=== PATIENT | male | born 1960 | race Caucasian/White ===

== ENCOUNTER 2018-04-14 15:24 | Inpatient (IN) | payer MEDICARE, MEDICAID ==
[~2018-04-14] VITALS: Ht 177.8 cm; Wt 80.5 kg
[~2018-04-14 15:24] MED LIST: ACET325T21 PO; ASPI-621 PO; ATOR40TA78 PO; CARV3.122 PO; CLOP75TA PO; EMTR1TAB8 PO; LISI5TAB7 PO; NITR0.4T SL; [UNRECOGNIZED DRUG - REMARK]
[2018-04-14] MEDS ORDERED: SODIUM CHLORIDE FLUSH 10ML SYR IVF ONE (16:30)
[2018-04-14] MEDS ORDERED: SODIUM CHLORIDE 0.9% 1,000ML IVBOLUS ONE (16:30)
[2018-04-14] MEDS ORDERED: ASPIRIN 81 MG TABLET CHEW PO ONE (16:30)
[2018-04-14 16:33] LABS: ALANINE AMINOTRANSFERASE 84 U/L (12-78); ALBUMIN 2.9 g/dL (3.4-5.0); ANION GAP 8 mmol/L (5-15); CALCIUM 8.5 mg/dL (8.5-10.1); CHLORIDE 101 mmol/L (98-107); CREATININE 1.59 mg/dL (0.7-1.3); D-DIMER 2.28 ug/mlFEU (0.00-0.52); INTERNATIONAL NORMALIZED RATIO 1.61 (0.93-1.1); PROTHROMBIN TIME 16.4 Seconds (9.6-11.5)
[2018-04-14 16:37] LABS: ALKALINE PHOSPHATASE 121 U/L (45-117); BILIRUBIN,TOTAL 12.3 mg/dL (0.2-1.0); TOTAL PROTEIN 7.5 g/dL (6.4-8.2); TROPONIN I 0.117 ng/mL (0.000-0.045)
[2018-04-14 16:47] LABS: MEAN CORPUSCULAR HEMOGLOBIN 23.3 pg (27.5-34.5); MEAN CORPUSCULAR VOLUME 73.1 fL (81-97); RED BLOOD COUNT 5.67 x10^6/uL (4.38-5.82); RED CELL DISTRIBUTION WIDTH 22.8 % (9.4-14.8)
[2018-04-14 16:50] LABS: MD YES
[2018-04-14 16:56] LABS: LYMPH#(MANUAL) 1.28 x10^3/uL (1-3.4); LYMPHS% (MANUAL) 25 % (22-44); MONOS% (MANUAL) 4 % (2-9); NRBC % (MANUAL) 1 % (0-1); REACTIVE LYMPHS % (MANUAL) 2 % (0-0); SEG#(MANUAL) 3.52 x10^3/uL (1.8-6.8); SEGS% (MANUAL) 69 % (42-75)
[2018-04-14 16:58] LABS: ANISOCYTOSIS 2+; ECHINOCYTES 1+; HYPOCHROMIA 1+; MICROCYTOSIS 2+; OVALOCYTES 1+; POLYCHROMASIA 1+
[2018-04-14 16:59] LABS: TARGET CELLS 1+
[2018-04-14] MEDS ORDERED: SODIUM CHLORIDE 0.9%, 500ML IVBOLUS ONE (17:00)
[2018-04-14] MEDS ORDERED: OMNIPAQUE 350 MG/ML, 100ML BOTTLE ONE (17:00)
[2018-04-14 17:02] LABS: PLATELET COUNT 216 x10^3/uL (130-400)
[2018-04-14 17:03] LABS: <PLATELET ESTIMATE> ADEQUATE; LARGE PLATELETS 1+
[2018-04-14] MEDS ORDERED: lasix PO (17:28)
[2018-04-14] MEDS ORDERED: BISACODYL 10 MG SUPP PR PRN (19:30)
[2018-04-14] MEDS ORDERED: ONDANSETRON 2MG/ML, 2ML IVPush PRN (19:30)
[2018-04-14] MEDS ORDERED: POLYETHYLENE GLYCOL 17 GM PACKET PO PRN (19:30)
[2018-04-14] MEDS: FUROSEMIDE 40 MG/4 ML IV SCH (19:53)
[2018-04-14] MEDS: SODIUM CHLORIDE FLUSH 10ML SYR IVF SCH (20:00)
[2018-04-14 20:30] VITALS: BP 126/84
[2018-04-14] MEDS: HEPARIN 5,000 UNITS/ML, 1ML SQ SCH (22:00)
[2018-04-14 22:26] LABS: TROPONIN I 0.122 ng/mL (0.000-0.045)
[2018-04-14 23:30] LABS: MICROSCOPIC AUTO
[2018-04-14 23:33] LABS: CULTURE INDICATED? NO
[2018-04-14 23:40] LABS: CHLORIDE,URINE RANDOM 127 mmol/L; POTASSIUM,URINE RANDOM 24 mmol/L; SODIUM,URINE RANDOM 103 mmol/L
[2018-04-14 23:42] LABS: AMPHETAMINE SCREEN, URINE Negative (Negative); BARBITURATE SCREEN, URINE Negative (Negative); BENZODIAZEPINE SCREEN, URINE Negative (Negative); CANNABINOID SCREEN, URINE Negative (Negative); COCAINE SCREEN, URINE Negative (Negative); CREATININE,URINE RANDOM < 13.00 mg/dL; METHADONE SCREEN, URINE Negative (Negative); OPIATE SCREEN, URINE Negative (Negative)
[2018-04-15 02:16] VITALS: BP 104/72
[2018-04-15 04:30] LABS: INTERNATIONAL NORMALIZED RATIO 1.58 (0.93-1.1); PROTHROMBIN TIME 16.1 Seconds (9.6-11.5)
[2018-04-15 04:33] LABS: ALANINE AMINOTRANSFERASE 76 U/L (12-78); ALBUMIN 2.5 g/dL (3.4-5.0); ANION GAP 7 mmol/L (5-15); CALCIUM 7.8 mg/dL (8.5-10.1); CHLORIDE 101 mmol/L (98-107); CREATININE 1.46 mg/dL (0.7-1.3)
[2018-04-15 04:37] LABS: ALKALINE PHOSPHATASE 110 U/L (45-117); BILIRUBIN,TOTAL 10.3 mg/dL (0.2-1.0); TOTAL PROTEIN 6.3 g/dL (6.4-8.2); TROPONIN I 0.111 ng/mL (0.000-0.045)
[2018-04-15 04:42] LABS: MEAN CORPUSCULAR HEMOGLOBIN 22.9 pg (27.5-34.5); MEAN CORPUSCULAR HGB CONC 31.2 g/dL (33.2-36.2); MEAN CORPUSCULAR VOLUME 73.6 fL (81-97); PLATELET COUNT 177 x10^3/uL (130-400); RED BLOOD COUNT 5.01 x10^6/uL (4.38-5.82); RED CELL DISTRIBUTION WIDTH 22.3 % (9.4-14.8)
[2018-04-15 05:04] LABS: BASOPHILS # (AUTO) 0.01 x10^3/uL (0-0.1); BASOPHILS % (AUTO) 0 % (0-1); EOSINOPHILS # (AUTO) 0.02 x10^3/uL (0-0.4); EOSINOPHILS % (AUTO) 1 % (1-7); LYMPHOCYTES # (AUTO) 0.89 x10^3/uL (1-3.4); LYMPHOCYTES % (AUTO) 19 % (22-44); MD SCAN; MONOCYTES # (AUTO) 0.25 x10^3/uL (0.2-0.8); MONOCYTES % (AUTO) 6 % (2-9); NEUTROPHILS # (AUTO) 3.39 x10^3/uL (1.8-6.8); NEUTROPHILS % (AUTO) 74 % (42-75)
[2018-04-15] MEDS: HEPARIN 5,000 UNITS/ML, 1ML SQ SCH ×3 (05:31→21:42)
[2018-04-15 06:39] VITALS: BP 104/75
[2018-04-15] MEDS: FUROSEMIDE 40 MG/4 ML IV SCH ×2 (08:32→16:47)
[2018-04-15] MEDS: SENNA/DOCUSATE TABLET PO SCH (08:32)
[2018-04-15] MEDS: SODIUM CHLORIDE FLUSH 10ML SYR IVF SCH ×2 (08:33→21:42)
[2018-04-15 12:32] VITALS: BP 109/80
[2018-04-15 16:34] LABS: TROPONIN I 0.103 ng/mL (0.000-0.045)
[2018-04-15 16:45] VITALS: BP 106/83
[2018-04-15 18:44] VITALS: BP 99/76
[2018-04-16 01:30] VITALS: BP 103/70
[2018-04-16 04:22] LABS: MEAN CORPUSCULAR HEMOGLOBIN 23.1 pg (27.5-34.5); MEAN CORPUSCULAR HGB CONC 31.5 g/dL (33.2-36.2); MEAN CORPUSCULAR VOLUME 73.2 fL (81-97); MEAN PLATELET VOLUME 10.1 fL (7.4-10.4); PLATELET COUNT 186 x10^3/uL (130-400); RED BLOOD COUNT 4.96 x10^6/uL (4.38-5.82); RED CELL DISTRIBUTION WIDTH 22.3 % (9.4-14.8)
[2018-04-16 04:38] LABS: MD YES
[2018-04-16 04:40] LABS: ALBUMIN 2.4 g/dL (3.4-5.0); ANION GAP 7 mmol/L (5-15); CHLORIDE 99 mmol/L (98-107)
[2018-04-16 04:41] LABS: ANISOCYTOSIS 2+; HYPOCHROMIA 1+; LYMPH#(MANUAL) 0.83 x10^3/uL (1-3.4); LYMPHS% (MANUAL) 12 % (22-44); MICROCYTOSIS 1+; MONOS#(MANUAL) 0.14 x10^3/uL (0.3-2.7); MONOS% (MANUAL) 2 % (2-9); OVALOCYTES 1+; POLYCHROMASIA 1+; SEG#(MANUAL) 5.93 x10^3/uL (1.8-6.8); SEGS% (MANUAL) 86 % (42-75); TARGET CELLS 1+
[2018-04-16 04:43] LABS: <PLATELET ESTIMATE> ADEQUATE; LARGE PLATELETS 1+
[2018-04-16 04:45] LABS: ALANINE AMINOTRANSFERASE 68 U/L (12-78); ALKALINE PHOSPHATASE 102 U/L (45-117); BILIRUBIN,TOTAL 8.5 mg/dL (0.2-1.0); CALCIUM 7.6 mg/dL (8.5-10.1); CREATININE 1.39 mg/dL (0.7-1.3); TOTAL PROTEIN 6.3 g/dL (6.4-8.2); TROPONIN I 0.129 ng/mL (0.000-0.045)
[2018-04-16] MEDS: HEPARIN 5,000 UNITS/ML, 1ML SQ SCH ×3 (05:47→22:59)
[2018-04-16 07:04] VITALS: BP 103/78
[2018-04-16] MEDS: SENNA/DOCUSATE TABLET PO SCH (09:00)
[2018-04-16] MEDS: FUROSEMIDE 40 MG/4 ML IV SCH ×2 (12:14→17:07)
[2018-04-16] MEDS: ISOSORBIDE MONONITRATE ER 30 MG TABLET PO SCH (12:14)
[2018-04-16] MEDS: METOPROLOL SUCCINATE 25 MG TAB.ER.24H PO SCH (12:15)
[2018-04-16] MEDS: SODIUM CHLORIDE FLUSH 10ML SYR IVF SCH ×2 (12:16→21:00)
[2018-04-16] MEDS ORDERED: POTASSIUM CHLORIDE 20 MEQ TAB.ER.PRT PO ONE (12:30)
[2018-04-16 15:59] VITALS: BP 97/58
[2018-04-16] MEDS: POTASSIUM CHLORIDE 20 MEQ TAB.ER.PRT PO SCH (17:08)
[2018-04-16 19:39] VITALS: BP 93/64
[2018-04-16] MEDS ORDERED: NITROGLYCERIN 0.4 MG BOTTLE (25 TABS) SL PRN (20:30)
[2018-04-16] MEDS ORDERED: MAALOX/HYOSCYAMINE/LIDOCAINE 45 ML BTL PO ONE (21:00)
[2018-04-16] MEDS ORDERED: ASPIRIN 325 MG TABLET PO SCH (21:00)
[2018-04-16] MEDS ORDERED: CLOPIDOGREL 75 MG TABLET PO SCH (21:00)
[2018-04-16] MEDS ORDERED: ASPIRIN 81 MG TABLET EC PO SCH (21:12)
[2018-04-16] MEDS: EMTRICITABINE/TENOFOVIR 200 MG/300 MG TABLET PO SCH (21:25)
[2018-04-17 01:29] VITALS: BP 99/71
[2018-04-17] MEDS ORDERED: METOPROLOL SUCCINATE 25 MG TAB.ER.24H PO SCH (06:00)
[2018-04-17] MEDS: METOPROLOL SUCCINATE 25 MG TAB.ER.24H PO SCH (06:00)
[2018-04-17 06:14] VITALS: BP 99/72
[2018-04-17] MEDS: HEPARIN 5,000 UNITS/ML, 1ML SQ SCH ×2 (06:18→16:41)
[2018-04-17 07:32] VITALS: BP 105/73
[2018-04-17 08:09] LABS: ANION GAP 8 mmol/L (5-15); CALCIUM 7.8 mg/dL (8.5-10.1); CHLORIDE 97 mmol/L (98-107); CREATININE 1.35 mg/dL (0.7-1.3)
[2018-04-17 08:23] LABS: MEAN CORPUSCULAR HEMOGLOBIN 22.4 pg (27.5-34.5); MEAN CORPUSCULAR HGB CONC 30.5 g/dL (33.2-36.2); MEAN CORPUSCULAR VOLUME 73.4 fL (81-97); PLATELET COUNT 223 x10^3/uL (130-400); RED BLOOD COUNT 5.53 x10^6/uL (4.38-5.82); RED CELL DISTRIBUTION WIDTH 22.9 % (9.4-14.8)
[2018-04-17 08:24] LABS: MD YES
[2018-04-17 08:26] LABS: BAND#(MANUAL) 0.11 x10^3/uL; BANDS%(MANUAL) 2 % (0-7); BASOS#(MANUAL) 0.05 x10^3/uL (0-0.1); BASOS% (MANUAL) 1 % (0-1); LYMPH#(MANUAL) 1.35 x10^3/uL (1-3.4); LYMPHS% (MANUAL) 25 % (22-44); MONOS#(MANUAL) 0.22 x10^3/uL (0.3-2.7); MONOS% (MANUAL) 4 % (2-9); NRBC % (MANUAL) 3 % (0-1); SEG#(MANUAL) 3.67 x10^3/uL (1.8-6.8); SEGS% (MANUAL) 68 % (42-75)
[2018-04-17 08:27] LABS: ANISOCYTOSIS 2+; HYPOCHROMIA 2+; MICROCYTOSIS 1+; POLYCHROMASIA 1+
[2018-04-17 08:28] LABS: <PLATELET ESTIMATE> ADEQUATE; <PLT MORPHOLOGY> NORMAL PLT MORPH; OVALOCYTES 1+
[2018-04-17] MEDS: ASPIRIN 81 MG TABLET EC PO SCH (08:43)
[2018-04-17] MEDS: CLOPIDOGREL 75 MG TABLET PO SCH (08:43)
[2018-04-17] MEDS: FUROSEMIDE 40 MG/4 ML IV SCH ×2 (08:43→16:40)
[2018-04-17] MEDS: POTASSIUM CHLORIDE 20 MEQ TAB.ER.PRT PO SCH ×2 (08:43→19:25)
[2018-04-17] MEDS: ISOSORBIDE MONONITRATE ER 30 MG TABLET PO SCH (08:44)
[2018-04-17] MEDS: SODIUM CHLORIDE FLUSH 10ML SYR IVF SCH ×2 (09:00→20:58)
[2018-04-17] MEDS: SENNA/DOCUSATE TABLET PO SCH (09:00)
[2018-04-17 13:22] VITALS: BP 93/65
[2018-04-17 19:28] VITALS: BP 100/67
[2018-04-17] MEDS: EMTRICITABINE/TENOFOVIR 200 MG/300 MG TABLET PO SCH (20:58)
[2018-04-17] MEDS: FLUTICASONE NASAL SPRAY 16GM NAS SCH (20:58)
[2018-04-17] MEDS ORDERED: EMTRICITABINE/TENOFOVIR 200 MG/300 MG TABLET PO SCH (21:00)
[2018-04-18] MEDS: HEPARIN 5,000 UNITS/ML, 1ML SQ SCH ×3 (00:43→16:35)
[2018-04-18 01:06] VITALS: BP 100/70
[2018-04-18 05:12] VITALS: BP 99/69
[2018-04-18] MEDS: METOPROLOL SUCCINATE 25 MG TAB.ER.24H PO SCH (05:17)
[2018-04-18 05:21] LABS: CALCIUM 7.9 mg/dL (8.5-10.1); CHLORIDE 97 mmol/L (98-107)
[2018-04-18 05:31] LABS: ALBUMIN 2.7 g/dL (3.4-5.0); ALKALINE PHOSPHATASE 101 U/L (45-117); ANION GAP 7 mmol/L (5-15); BILIRUBIN,TOTAL 3.8 mg/dL (0.2-1.0); CREATININE 1.33 mg/dL (0.7-1.3)
[2018-04-18 05:50] LABS: ALANINE AMINOTRANSFERASE 53 U/L (12-78)
[2018-04-18 06:13] LABS: TOTAL PROTEIN 7.5 g/dL (6.4-8.2)
[2018-04-18 06:38] LABS: MD YES; MEAN CORPUSCULAR HEMOGLOBIN 22.6 pg (27.5-34.5); MEAN CORPUSCULAR HGB CONC 30.6 g/dL (33.2-36.2); MEAN CORPUSCULAR VOLUME 73.7 fL (81-97); MEAN PLATELET VOLUME 10.5 fL (7.4-10.4); PLATELET COUNT 213 x10^3/uL (130-400)
[2018-04-18 06:40] LABS: <PLATELET ESTIMATE> ADEQUATE; ANISOCYTOSIS 2+; HYPOCHROMIA 1+; LYMPH#(MANUAL) 0.48 x10^3/uL (1-3.4); LYMPHS% (MANUAL) 8 % (22-44); MICROCYTOSIS 1+; OVALOCYTES 1+; POLYCHROMASIA 1+; SEG#(MANUAL) 5.52 x10^3/uL (1.8-6.8); SEGS% (MANUAL) 92 % (42-75)
[2018-04-18 06:41] LABS: <PLT MORPHOLOGY> NORMAL PLT MORPH
[2018-04-18 07:29] VITALS: BP_SYST 116; BP_SYST 144; BP_DIAS 82; BP_DIAS 86
[2018-04-18] MEDS: SODIUM CHLORIDE FLUSH 10ML SYR IVF SCH ×2 (07:46→20:57)
[2018-04-18] MEDS: ASPIRIN 81 MG TABLET EC PO SCH (07:47)
[2018-04-18] MEDS: ISOSORBIDE MONONITRATE ER 30 MG TABLET PO SCH (07:47)
[2018-04-18] MEDS: CLOPIDOGREL 75 MG TABLET PO SCH (07:47)
[2018-04-18] MEDS: SENNA/DOCUSATE TABLET PO SCH (07:47)
[2018-04-18] MEDS: FUROSEMIDE 40 MG/4 ML IV SCH (07:47)
[2018-04-18] MEDS: POTASSIUM CHLORIDE 20 MEQ TAB.ER.PRT PO SCH ×2 (07:47→16:35)
[2018-04-18] MEDS: FLUTICASONE NASAL SPRAY 16GM NAS SCH ×2 (07:48→20:57)
[2018-04-18] MEDS: RAMIPRIL 2.5 MG CAPSULE PO SCH (10:00)
[2018-04-18 10:52] VITALS: BP 96/67
[2018-04-18 14:21] VITALS: BP 100/59
[2018-04-18 19:00] VITALS: BP 106/74
[2018-04-18] MEDS: EMTRICITABINE/TENOFOVIR 200 MG/300 MG TABLET PO SCH (20:58)
[2018-04-19] MEDS: HEPARIN 5,000 UNITS/ML, 1ML SQ SCH ×2 (00:23→08:34)
[2018-04-19 00:25] VITALS: BP 102/70
[2018-04-19 05:34] VITALS: BP 92/67
[2018-04-19] MEDS: METOPROLOL SUCCINATE 25 MG TAB.ER.24H PO SCH (05:37)
[2018-04-19 05:50] LABS: ALBUMIN 2.5 g/dL (3.4-5.0); CALCIUM 7.7 mg/dL (8.5-10.1); CHLORIDE 99 mmol/L (98-107)
[2018-04-19 05:56] LABS: ALANINE AMINOTRANSFERASE 46 U/L (12-78); ALKALINE PHOSPHATASE 93 U/L (45-117); ANION GAP 7 mmol/L (5-15); BILIRUBIN,TOTAL 2.3 mg/dL (0.2-1.0); CREATININE 1.35 mg/dL (0.7-1.3)
[2018-04-19 06:17] LABS: MEAN CORPUSCULAR HEMOGLOBIN 22.7 pg (27.5-34.5); MEAN CORPUSCULAR HGB CONC 30.8 g/dL (33.2-36.2); MEAN CORPUSCULAR VOLUME 73.4 fL (81-97); MEAN PLATELET VOLUME 10.5 fL (7.4-10.4); PLATELET COUNT 221 x10^3/uL (130-400); RED BLOOD COUNT 5.31 x10^6/uL (4.38-5.82); RED CELL DISTRIBUTION WIDTH 21.9 % (9.4-14.8)
[2018-04-19 06:18] LABS: BASOPHILS # (AUTO) 0.04 x10^3/uL (0-0.1); BASOPHILS % (AUTO) 1 % (0-1); EOSINOPHILS # (AUTO) 0.13 x10^3/uL (0-0.4); EOSINOPHILS % (AUTO) 3 % (1-7); LYMPHOCYTES # (AUTO) 1.17 x10^3/uL (1-3.4); LYMPHOCYTES % (AUTO) 26 % (22-44); MD SCAN; MONOCYTES # (AUTO) 0.22 x10^3/uL (0.2-0.8); MONOCYTES % (AUTO) 5 % (2-9); NEUTROPHILS # (AUTO) 2.94 x10^3/uL (1.8-6.8); NEUTROPHILS % (AUTO) 65 % (42-75)
[2018-04-19 07:22] VITALS: BP 100/71
[2018-04-19] MEDS: ASPIRIN 81 MG TABLET EC PO SCH (08:34)
[2018-04-19] MEDS: SODIUM CHLORIDE FLUSH 10ML SYR IVF SCH (08:34)
[2018-04-19] MEDS: ISOSORBIDE MONONITRATE ER 30 MG TABLET PO SCH (08:35)
[2018-04-19] MEDS: CLOPIDOGREL 75 MG TABLET PO SCH (08:35)
[2018-04-19] MEDS: FLUTICASONE NASAL SPRAY 16GM NAS SCH (08:35)
[2018-04-19] MEDS: SENNA/DOCUSATE TABLET PO SCH (08:35)
[2018-04-19] MEDS: RAMIPRIL 2.5 MG CAPSULE PO SCH (08:35)
[2018-04-19] MEDS: POTASSIUM CHLORIDE 20 MEQ TAB.ER.PRT PO SCH (08:35)
[2018-04-19] MEDS ORDERED: FUROSEMIDE 40 MG TABLET PO SCH (09:00)
[2018-04-19 13:06] VITALS: BP 91/64
[2018-04-19] MEDS ORDERED: ISOS30TA8 PO (13:59)
[2018-04-19] MEDS ORDERED: ASPI-621 PO (13:59)
[2018-04-19] MEDS ORDERED: METO25TA91 PO (13:59)
[2018-04-19] MEDS ORDERED: RAMI2.5C PO (13:59)
[2018-04-19] MEDS ORDERED: CLOP75TA PO (13:59)
[2018-04-19] MEDS ORDERED: FURO40TA6 PO (13:59)
[2018-04-19] MEDS ORDERED: POTA20TA6 PO (13:59)
== END 2018-04-19 16:23 | disposition left against medical advice (07) | DRG 291 ==
LOC: ED 19:05 → EDIP 19:15 → 5SO 19:31
PROVIDERS: ADMIT Family Medicine; ATTEND Family Medicine
DX: I13.0 Hypertensive heart and chronic kidney disease with heart failure and stage 1 through stage 4 chronic kidney disease, or unspecified chronic kidney disease (principal); I50.23 Acute on chronic systolic (congestive) heart failure; E87.2 Acidosis; E87.1 Hypo-osmolality and hyponatremia; D68.9 Coagulation defect, unspecified; I47.2 Ventricular tachycardia; F15.10 Other stimulant abuse, uncomplicated; K75.9 Inflammatory liver disease, unspecified; D50.9 Iron deficiency anemia, unspecified; E78.5 Hyperlipidemia, unspecified; F17.200 Nicotine dependence, unspecified, uncomplicated; I07.1 Rheumatic tricuspid insufficiency; I25.10 Atherosclerotic heart disease of native coronary artery without angina pectoris; I25.5 Ischemic cardiomyopathy; I27.20 Pulmonary hypertension, unspecified; I37.1 Nonrheumatic pulmonary valve insufficiency; K76.1 Chronic passive congestion of liver; K80.50 Calculus of bile duct without cholangitis or cholecystitis without obstruction; N18.2 Chronic kidney disease, stage 2 (mild); N20.0 Calculus of kidney; Z79.02 Long term (current) use of antithrombotics/antiplatelets; Z79.82 Long term (current) use of aspirin; Z91.14 Patient's other noncompliance with medication regimen; Z95.5 Presence of coronary angioplasty implant and graft; I25.2 Old myocardial infarction; Z86.73 Personal history of transient ischemic attack (TIA), and cerebral infarction without residual deficits; Z88.8 Allergy status to other drugs, medicaments and biological substances; Z21 Asymptomatic human immunodeficiency virus [HIV] infection status
CPT/HCPCS: 36415; 36600; 70450; 71045; 71275; 74181; 76700; 80048; 80053; 80074; 80307; 81001; 82140; 82436; 82570; 82728; 82803; 83540; 83550; 83605; 83690; 83735; 83880; 84133; 84300; 84484; 85025; 85379; 85610; 85730; 86361; 87040; 87536; 93005; 99285; C8929; J1644; J1940; Q9967; J7030; J7040

== ENCOUNTER 2018-08-10 07:33 | Inpatient (IN) | payer MEDICARE, MEDICAID ==
[~2018-08-10] VITALS: Ht 180.3 cm; Wt 85.9 kg
[~2018-08-10 07:33] MED LIST changes: -ASPI-621 PO; +ASPI81TA45 PO; +FURO40TA6 PO; +ISOS30TA8 PO; +METO25TA91 PO; +POTA20TA6 PO; +RAMI2.5C2 PO; +lasix PO
[2018-08-10] MEDS ORDERED: LORazepam 1MG TABLET PO ONE (08:00)
[2018-08-10] MEDS ORDERED: LORazepam 1MG TABLET ONE (08:06)
[2018-08-10 08:12] LABS: MEAN CORPUSCULAR HEMOGLOBIN 23.3 pg (27.5-34.5); MEAN CORPUSCULAR HGB CONC 31.4 g/dL (33.2-36.2); MEAN CORPUSCULAR VOLUME 74.2 fL (81-97); MEAN PLATELET VOLUME 8.7 fL (7.4-10.4); PLATELET COUNT 338 x10^3/uL (130-400); RED BLOOD COUNT 5.87 x10^6/uL (4.38-5.82); RED CELL DISTRIBUTION WIDTH 24.6 % (9.4-14.8)
[2018-08-10 08:19] LABS: ALBUMIN 2.6 g/dL (3.4-5.0); ANION GAP 12 mmol/L (5-15); CALCIUM 8.3 mg/dL (8.5-10.1); CHLORIDE 101 mmol/L (98-107); CREATININE 1.16 mg/dL (0.7-1.3)
[2018-08-10 08:26] LABS: TROPONIN I 0.134 ng/mL (0.000-0.045)
[2018-08-10 09:10] LABS: BASOPHILS # (AUTO) 0.06 x10^3/uL (0-0.1); BASOPHILS % (AUTO) 1 % (0-1); EOSINOPHILS # (AUTO) 0.06 x10^3/uL (0-0.4); EOSINOPHILS % (AUTO) 1 % (1-7); LYMPHOCYTES # (AUTO) 1.94 x10^3/uL (1-3.4); LYMPHOCYTES % (AUTO) 26 % (22-44); MD MORPH REVIEW ONLY; MONOCYTES # (AUTO) 0.48 x10^3/uL (0.2-0.8); MONOCYTES % (AUTO) 6 % (2-9); NEUTROPHILS # (AUTO) 4.94 x10^3/uL (1.8-6.8); NEUTROPHILS % (AUTO) 66 % (42-75)
[2018-08-10] MEDS ORDERED: SODIUM CHLORIDE FLUSH 10ML SYR IVF PRN (09:30)
[2018-08-10 10:12] LABS: ANISOCYTOSIS 2+
[2018-08-10 10:13] LABS: HYPOCHROMIA 1+; MICROCYTOSIS 1+
[2018-08-10 10:14] LABS: <PLATELET ESTIMATE> ADEQUATE; <PLT MORPHOLOGY> NORMAL PLT MORPH
[2018-08-10] MEDS ORDERED: LABETALOL 5MG/ML, 20ML IVPush PRN (11:00)
[2018-08-10] MEDS ORDERED: POLYETHYLENE GLYCOL 17 GM PACKET PO PRN (11:00)
[2018-08-10] MEDS ORDERED: ONDANSETRON 2MG/ML, 2ML IVPush PRN (11:00)
[2018-08-10 11:02] VITALS: BP 123/74
[2018-08-10] MEDS ORDERED: POTASSIUM CHLORIDE 20 MEQ TAB.ER.PRT PO ONE ×2 (11:30→14:30)
[2018-08-10] MEDS ORDERED: RITO100T PO (11:31)
[2018-08-10] MEDS ORDERED: ATAZ300C PO (11:31)
[2018-08-10] MEDS ORDERED: EMTR1TAB8 PO (11:31)
[2018-08-10] MEDS: ATAZANAVIR 150 MG PO SCH (12:00)
[2018-08-10] MEDS: CLOPIDOGREL 75 MG TABLET PO SCH (12:40)
[2018-08-10] MEDS: EMTRICITABINE/TENOFOVIR 200 MG/300 MG TABLET PO SCH (12:40)
[2018-08-10] MEDS: ASPIRIN 81 MG TABLET EC PO SCH (12:40)
[2018-08-10] MEDS: RITONAVIR 100 MG TABLET PO SCH (12:40)
[2018-08-10] MEDS: METOPROLOL SUCCINATE 25 MG TAB.ER.24H PO SCH (12:41)
[2018-08-10] MEDS: ENOXAPARIN 40 MG/0.4 ML SQ SCH (12:41)
[2018-08-10 13:14] VITALS: BP 116/81
[2018-08-10 14:35] LABS: TROPONIN I 0.122 ng/mL (0.000-0.045)
[2018-08-10 14:50] VITALS: BP 118/84
[2018-08-10] MEDS ORDERED: LORazepam 0.5MG TABLET ONE (15:14)
[2018-08-10] MEDS: LORazepam 0.5MG TABLET PO PRN (15:17)
[2018-08-10] MEDS: FUROSEMIDE 20 MG/2 ML IV SCH (16:56)
[2018-08-10 20:24] VITALS: BP 113/86
[2018-08-10 20:32] LABS: TROPONIN I 0.109 ng/mL (0.000-0.045)
[2018-08-11 02:11] VITALS: BP 129/69
[2018-08-11 05:20] VITALS: BP 94/66
[2018-08-11 05:37] LABS: MEAN CORPUSCULAR HGB CONC 31.1 g/dL (33.2-36.2); MEAN CORPUSCULAR VOLUME 74.1 fL (81-97); MEAN PLATELET VOLUME 8.9 fL (7.4-10.4); PLATELET COUNT 302 x10^3/uL (130-400); RED BLOOD COUNT 5.67 x10^6/uL (4.38-5.82); RED CELL DISTRIBUTION WIDTH 24.3 % (9.4-14.8)
[2018-08-11 05:51] LABS: ALBUMIN 2.5 g/dL (3.4-5.0); ANION GAP 13 mmol/L (5-15); CALCIUM 8.7 mg/dL (8.5-10.1); CHLORIDE 103 mmol/L (98-107)
[2018-08-11 05:54] LABS: BASOPHILS # (AUTO) 0.03 x10^3/uL (0-0.1); BASOPHILS % (AUTO) 0 % (0-1); EOSINOPHILS # (AUTO) 0.02 x10^3/uL (0-0.4); EOSINOPHILS % (AUTO) 0 % (1-7); LYMPHOCYTES % (AUTO) 23 % (22-44); MD SCAN; MONOCYTES # (AUTO) 0.64 x10^3/uL (0.2-0.8); MONOCYTES % (AUTO) 10 % (2-9); NEUTROPHILS # (AUTO) 4.25 x10^3/uL (1.8-6.8); NEUTROPHILS % (AUTO) 66 % (42-75)
[2018-08-11 06:04] LABS: ALANINE AMINOTRANSFERASE 34 U/L (12-78); ALKALINE PHOSPHATASE 111 U/L (45-117); BILIRUBIN,TOTAL 3.5 mg/dL (0.2-1.0); CREATININE 1.39 mg/dL (0.7-1.3); TOTAL PROTEIN 8.2 g/dL (6.4-8.2)
[2018-08-11 06:51] VITALS: BP 93/65
[2018-08-11] MEDS: FUROSEMIDE 20 MG/2 ML IV SCH ×2 (07:30→16:43)
[2018-08-11] MEDS: RAMIPRIL 2.5 MG CAPSULE PO SCH (09:00)
[2018-08-11] MEDS: ATAZANAVIR 150 MG PO SCH (09:00)
[2018-08-11] MEDS: SENNA/DOCUSATE TABLET PO SCH (09:00)
[2018-08-11] MEDS ORDERED: ISOSORBIDE MONONITRATE ER 30 MG TABLET PO SCH (09:00)
[2018-08-11] MEDS: ASPIRIN 81 MG TABLET EC PO SCH (09:45)
[2018-08-11] MEDS: METOPROLOL SUCCINATE 25 MG TAB.ER.24H PO SCH (09:45)
[2018-08-11] MEDS: CLOPIDOGREL 75 MG TABLET PO SCH (09:45)
[2018-08-11] MEDS: EMTRICITABINE/TENOFOVIR 200 MG/300 MG TABLET PO SCH (09:46)
[2018-08-11] MEDS: RITONAVIR 100 MG TABLET PO SCH (09:46)
[2018-08-11] MEDS ORDERED: HEPARIN 25,000 UNITS/500ML PMX 500 ML IV PRN (10:00)
[2018-08-11 11:00] LABS: INTERNATIONAL NORMALIZED RATIO 1.78 (0.93-1.1); PROTHROMBIN TIME 18.5 Seconds (9.6-11.5)
[2018-08-11] MEDS: ENOXAPARIN 40 MG/0.4 ML SQ SCH (11:00)
[2018-08-11] MEDS ORDERED: HEPARIN 5,000 UNITS/ML, 1ML IV ONE (11:30)
[2018-08-11] MEDS: HEPARIN 25,000 UNITS/500ML PMX 500 ML IV PRN (12:21)
[2018-08-11 12:36] VITALS: BP 101/75
[2018-08-11] MEDS: LORazepam 0.5MG TABLET PO PRN (17:45)
[2018-08-11] MEDS ORDERED: WARFARIN 5 MG TABLET PO-COUM ONE (18:00)
[2018-08-11] MEDS: ONDANSETRON ODT 4 MG PO PRN (18:35)
[2018-08-11 20:09] VITALS: BP 105/75
[2018-08-11] MEDS: HEPARIN 5,000 UNITS/ML, 1ML IV PRN (20:14)
[2018-08-12 00:43] VITALS: BP 97/74
[2018-08-12] MEDS: HEPARIN 5,000 UNITS/ML, 1ML IV PRN ×3 (02:42→16:47)
[2018-08-12 05:12] LABS: INTERNATIONAL NORMALIZED RATIO 2.08 (0.93-1.1); PROTHROMBIN TIME 21.4 Seconds (9.6-11.5)
[2018-08-12 05:17] LABS: MEAN CORPUSCULAR HEMOGLOBIN 23.3 pg (27.5-34.5); MEAN CORPUSCULAR HGB CONC 31.6 g/dL (33.2-36.2); MEAN CORPUSCULAR VOLUME 73.8 fL (81-97); MEAN PLATELET VOLUME 8.8 fL (7.4-10.4); PLATELET COUNT 282 x10^3/uL (130-400); RED BLOOD COUNT 5.49 x10^6/uL (4.38-5.82); RED CELL DISTRIBUTION WIDTH 24.5 % (9.4-14.8)
[2018-08-12 05:21] LABS: ALBUMIN 2.3 g/dL (3.4-5.0); ANION GAP 15 mmol/L (5-15); CALCIUM 8.8 mg/dL (8.5-10.1); CHLORIDE 98 mmol/L (98-107)
[2018-08-12 05:25] LABS: ALANINE AMINOTRANSFERASE 51 U/L (12-78); ALKALINE PHOSPHATASE 117 U/L (45-117); BILIRUBIN,TOTAL 5.3 mg/dL (0.2-1.0); CREATININE 1.58 mg/dL (0.7-1.3); TOTAL PROTEIN 7.6 g/dL (6.4-8.2)
[2018-08-12 05:48] VITALS: BP 96/69
[2018-08-12 06:03] LABS: BASOPHILS # (AUTO) 0.01 x10^3/uL (0-0.1); BASOPHILS % (AUTO) 0 % (0-1); EOSINOPHILS % (AUTO) 0 % (1-7); LYMPHOCYTES # (AUTO) 1.76 x10^3/uL (1-3.4); LYMPHOCYTES % (AUTO) 28 % (22-44); MD SCAN; MONOCYTES # (AUTO) 0.76 x10^3/uL (0.2-0.8); MONOCYTES % (AUTO) 12 % (2-9); NEUTROPHILS # (AUTO) 3.77 x10^3/uL (1.8-6.8); NEUTROPHILS % (AUTO) 60 % (42-75)
[2018-08-12] MEDS: FUROSEMIDE 20 MG/2 ML IV SCH (07:30)
[2018-08-12] MEDS ORDERED: PHARMACY MAY ADJ FOR RENAL FX MC PRN (08:00)
[2018-08-12] MEDS: SENNA/DOCUSATE TABLET PO SCH (08:39)
[2018-08-12 09:00] VITALS: BP 93/60
[2018-08-12] MEDS: RAMIPRIL 2.5 MG CAPSULE PO SCH (09:08)
[2018-08-12] MEDS: METOPROLOL SUCCINATE 25 MG TAB.ER.24H PO SCH (09:08)
[2018-08-12] MEDS: ASPIRIN 81 MG TABLET EC PO SCH (09:08)
[2018-08-12] MEDS: CLOPIDOGREL 75 MG TABLET PO SCH (09:08)
[2018-08-12] MEDS: ATAZANAVIR 150 MG PO SCH (09:09)
[2018-08-12] MEDS: RITONAVIR 100 MG TABLET PO SCH (09:09)
[2018-08-12] MEDS: EMTRICITABINE/TENOFOVIR 200 MG/300 MG TABLET PO SCH (09:09)
[2018-08-12] MEDS: HEPARIN 25,000 UNITS/500ML PMX 500 ML IV PRN (09:27)
[2018-08-12 15:01] VITALS: BP 91/60
[2018-08-12] MEDS ORDERED: WARFARIN 2.5 MG TABLET PO-COUM ONE (18:00)
[2018-08-12 18:44] VITALS: BP 90/56
[2018-08-12 20:12] LABS: AMPHETAMINE SCREEN, URINE Negative (Negative); BARBITURATE SCREEN, URINE Negative (Negative); BENZODIAZEPINE SCREEN, URINE Negative (Negative); CANNABINOID SCREEN, URINE Positive (Negative); COCAINE SCREEN, URINE Negative (Negative); METHADONE SCREEN, URINE Negative (Negative); OPIATE SCREEN, URINE Negative (Negative)
[2018-08-13] MEDS ORDERED: CEFTRIAXONE PMX 1GM/50ML 50 ML IV ONE
[2018-08-13] MEDS: HEPARIN 5,000 UNITS/ML, 1ML IV PRN (00:01)
[2018-08-13 01:15] VITALS: BP 99/90
[2018-08-13] MEDS: HEPARIN 25,000 UNITS/500ML PMX 500 ML IV PRN (03:16)
[2018-08-13] MEDS: METOPROLOL SUCCINATE 25 MG TAB.ER.24H PO SCH (05:50)
[2018-08-13 06:26] LABS: ALBUMIN 2.1 g/dL (3.4-5.0); ANION GAP 10 mmol/L (5-15); CHLORIDE 96 mmol/L (98-107); CREATININE 1.54 mg/dL (0.7-1.3); MEAN CORPUSCULAR HEMOGLOBIN 22.9 pg (27.5-34.5); MEAN CORPUSCULAR HGB CONC 31.3 g/dL (33.2-36.2); MEAN CORPUSCULAR VOLUME 73.1 fL (81-97); MEAN PLATELET VOLUME 9.1 fL (7.4-10.4); PLATELET COUNT 264 x10^3/uL (130-400); RED BLOOD COUNT 5.29 x10^6/uL (4.38-5.82); RED CELL DISTRIBUTION WIDTH 24.1 % (9.4-14.8)
[2018-08-13 06:48] LABS: INTERNATIONAL NORMALIZED RATIO 2.28 (0.93-1.1); PROTHROMBIN TIME 23.4 Seconds (9.6-11.5)
[2018-08-13 07:19] LABS: BASOPHILS # (AUTO) 0.02 x10^3/uL (0-0.1); BASOPHILS % (AUTO) 0 % (0-1); EOSINOPHILS # (AUTO) 0.03 x10^3/uL (0-0.4); EOSINOPHILS % (AUTO) 1 % (1-7); LYMPHOCYTES # (AUTO) 1.44 x10^3/uL (1-3.4); LYMPHOCYTES % (AUTO) 25 % (22-44); MD SCAN; MONOCYTES # (AUTO) 0.48 x10^3/uL (0.2-0.8); MONOCYTES % (AUTO) 9 % (2-9); NEUTROPHILS # (AUTO) 3.69 x10^3/uL (1.8-6.8); NEUTROPHILS % (AUTO) 65 % (42-75)
[2018-08-13] MEDS: FUROSEMIDE 40 MG/4 ML IV SCH ×4 (07:30→20:14)
[2018-08-13] MEDS ORDERED: ALBUMIN HUMAN 25% 100 ML IV ONE (07:30)
[2018-08-13] MEDS ORDERED: LIDOCAINE-MPF 1%, 5ML ONE (07:56)
[2018-08-13 08:08] VITALS: BP 102/70
[2018-08-13] MEDS: RAMIPRIL 2.5 MG CAPSULE PO SCH (09:00)
[2018-08-13] MEDS: SENNA/DOCUSATE TABLET PO SCH (09:00)
[2018-08-13] MEDS ORDERED: FUROSEMIDE 40 MG/4 ML IV ONE (09:00)
[2018-08-13] MEDS: ASPIRIN 81 MG TABLET EC PO SCH (09:37)
[2018-08-13] MEDS: RITONAVIR 100 MG TABLET PO SCH (09:38)
[2018-08-13] MEDS: ATAZANAVIR 150 MG PO SCH (09:38)
[2018-08-13] MEDS: EMTRICITABINE/TENOFOVIR 200 MG/300 MG TABLET PO SCH (09:38)
[2018-08-13 12:55] VITALS: BP 116/90
[2018-08-13 14:46] LABS: ALBUMIN 2.5 g/dL (3.4-5.0); ANION GAP 14 mmol/L (5-15); CALCIUM 8.2 mg/dL (8.5-10.1); CHLORIDE 96 mmol/L (98-107)
[2018-08-13 14:50] LABS: ALANINE AMINOTRANSFERASE 60 U/L (12-78); ALKALINE PHOSPHATASE 115 U/L (45-117); BILIRUBIN,TOTAL 5.3 mg/dL (0.2-1.0); CREATININE 1.36 mg/dL (0.7-1.3); TOTAL PROTEIN 7.4 g/dL (6.4-8.2)
[2018-08-13] MEDS ORDERED: WARFARIN 2.5 MG TABLET PO-COUM ONE (18:00)
[2018-08-13] MEDS ORDERED: ACETAMINOPHEN 325 MG TABLET PO PRN (20:00)
[2018-08-13 20:53] VITALS: BP 111/73
[2018-08-14 01:18] VITALS: BP 100/69
[2018-08-14 05:48] LABS: INTERNATIONAL NORMALIZED RATIO 3.03 (0.93-1.1); PROTHROMBIN TIME 30.8 Seconds (9.6-11.5)
[2018-08-14] MEDS: METOPROLOL SUCCINATE 25 MG TAB.ER.24H PO SCH (06:21)
[2018-08-14 07:22] VITALS: BP 88/54
[2018-08-14] MEDS: ATAZANAVIR 150 MG PO SCH (09:00)
[2018-08-14] MEDS: RAMIPRIL 2.5 MG CAPSULE PO SCH (09:00)
[2018-08-14] MEDS: SENNA/DOCUSATE TABLET PO SCH (09:00)
[2018-08-14 09:29] LABS: ALANINE AMINOTRANSFERASE 63 U/L (12-78); ALBUMIN 2.4 g/dL (3.4-5.0); ANION GAP 10 mmol/L (5-15); CALCIUM 7.9 mg/dL (8.5-10.1); CHLORIDE 98 mmol/L (98-107); CREATININE 1.21 mg/dL (0.7-1.3)
[2018-08-14 09:32] LABS: ALKALINE PHOSPHATASE 116 U/L (45-117); BILIRUBIN,TOTAL 4.9 mg/dL (0.2-1.0); TOTAL PROTEIN 6.8 g/dL (6.4-8.2)
[2018-08-14 09:33] LABS: MEAN CORPUSCULAR HEMOGLOBIN 22.6 pg (27.5-34.5); MEAN PLATELET VOLUME 9.3 fL (7.4-10.4); PLATELET COUNT 273 x10^3/uL (130-400); RED BLOOD COUNT 5.06 x10^6/uL (4.38-5.82)
[2018-08-14 09:51] LABS: BASOPHILS # (AUTO) 0.01 x10^3/uL (0-0.1); BASOPHILS % (AUTO) 0 % (0-1); EOSINOPHILS % (AUTO) 0 % (1-7); LYMPHOCYTES # (AUTO) 0.72 x10^3/uL (1-3.4); LYMPHOCYTES % (AUTO) 23 % (22-44); MD MORPH REVIEW ONLY; MONOCYTES # (AUTO) 0.12 x10^3/uL (0.2-0.8); MONOCYTES % (AUTO) 4 % (2-9); NEUTROPHILS # (AUTO) 2.33 x10^3/uL (1.8-6.8); NEUTROPHILS % (AUTO) 73 % (42-75)
[2018-08-14 09:52] LABS: ANISOCYTOSIS 1+; HYPOCHROMIA 1+; MICROCYTOSIS 1+; POLYCHROMASIA 1+; TARGET CELLS 1+
[2018-08-14 09:53] LABS: <PLATELET ESTIMATE> ADEQUATE; <PLT MORPHOLOGY> NORMAL PLT MORPH
[2018-08-14] MEDS: EMTRICITABINE/TENOFOVIR 200 MG/300 MG TABLET PO SCH (10:05)
[2018-08-14] MEDS: RITONAVIR 100 MG TABLET PO SCH (10:05)
[2018-08-14] MEDS: ASPIRIN 81 MG TABLET EC PO SCH (10:06)
[2018-08-14] MEDS: FUROSEMIDE 40 MG/4 ML IV SCH ×2 (10:07→20:58)
[2018-08-14] MEDS ORDERED: CEFTRIAXONE PMX 1GM/50ML 50 ML IV SCH (11:30)
[2018-08-14] MEDS: DOXYCYCLINE 100MG TABLET PO SCH ×2 (12:04→20:58)
[2018-08-14 13:48] VITALS: BP 106/76
[2018-08-14] MEDS ORDERED: WARFARIN 2.5 MG TABLET PO-COUM ONE (18:00)
[2018-08-14 18:44] VITALS: BP 98/69
[2018-08-15 00:42] VITALS: BP 108/79
[2018-08-15 05:32] LABS: INTERNATIONAL NORMALIZED RATIO 4.8 (0.93-1.1); PROTHROMBIN TIME 47.9 Seconds (9.6-11.5)
[2018-08-15 05:36] LABS: MEAN CORPUSCULAR HEMOGLOBIN 23.3 pg (27.5-34.5); MEAN CORPUSCULAR HGB CONC 31.9 g/dL (33.2-36.2); MEAN CORPUSCULAR VOLUME 73.2 fL (81-97); MEAN PLATELET VOLUME 9.5 fL (7.4-10.4); PLATELET COUNT 310 x10^3/uL (130-400); RED BLOOD COUNT 5.55 x10^6/uL (4.38-5.82); RED CELL DISTRIBUTION WIDTH 24.9 % (9.4-14.8)
[2018-08-15 05:38] LABS: ALBUMIN 2.5 g/dL (3.4-5.0); ANION GAP 12 mmol/L (5-15); CALCIUM 8.7 mg/dL (8.5-10.1); CHLORIDE 93 mmol/L (98-107)
[2018-08-15 05:39] LABS: CREATININE 1.58 mg/dL (0.7-1.3)
[2018-08-15] MEDS: METOPROLOL SUCCINATE 25 MG TAB.ER.24H PO SCH (06:06)
[2018-08-15 06:14] LABS: MD YES
[2018-08-15 06:16] LABS: LYMPH#(MANUAL) 1.13 x10^3/uL (1-3.4); LYMPHS% (MANUAL) 25 % (22-44); MONOS#(MANUAL) 0.32 x10^3/uL (0.3-2.7); MONOS% (MANUAL) 7 % (2-9); NRBC % (MANUAL) 9 % (0-1); SEG#(MANUAL) 3.06 x10^3/uL (1.8-6.8); SEGS% (MANUAL) 68 % (42-75)
[2018-08-15 06:17] LABS: ANISOCYTOSIS 1+; HYPOCHROMIA 1+; MICROCYTOSIS 1+; POLYCHROMASIA 1+; TARGET CELLS 1+
[2018-08-15 06:18] LABS: <PLATELET ESTIMATE> ADEQUATE; LARGE PLATELETS 1+
[2018-08-15] MEDS: ONDANSETRON ODT 4 MG PO PRN (08:16)
[2018-08-15] MEDS: DOXYCYCLINE 100MG TABLET PO SCH (08:22)
[2018-08-15] MEDS: RITONAVIR 100 MG TABLET PO SCH (08:22)
[2018-08-15] MEDS: FUROSEMIDE 40 MG/4 ML IV SCH (08:22)
[2018-08-15] MEDS: ATAZANAVIR 150 MG PO SCH (08:23)
[2018-08-15] MEDS: EMTRICITABINE/TENOFOVIR 200 MG/300 MG TABLET PO SCH (08:23)
[2018-08-15] MEDS: ASPIRIN 81 MG TABLET EC PO SCH (08:24)
[2018-08-15] MEDS: SENNA/DOCUSATE TABLET PO SCH (08:25)
[2018-08-15 08:38] VITALS: BP 128/76
[2018-08-15] MEDS: RAMIPRIL 2.5 MG CAPSULE PO SCH (08:40)
[2018-08-15] MEDS ORDERED: CEFD300C37 PO (08:56)
[2018-08-15] MEDS ORDERED: DOXY100T PO (08:56)
[2018-08-15] MEDS ORDERED: FURO-93 PO (08:57)
[2018-08-15] MEDS ORDERED: ATAZ300C PO (08:59)
[2018-08-15] MEDS ORDERED: EMTR1TAB8 PO (08:59)
[2018-08-15] MEDS ORDERED: SPIR25TA5 PO ×2 (09:00→10:00)
[2018-08-15 09:58] VITALS: BP 99/71
[2018-08-15] MEDS ORDERED: POTA10CA PO (10:03)
[2018-08-15] MEDS ORDERED: [UNRECOGNIZED DRUG - REMARK] MC PRN (11:00)
== END 2018-08-15 11:27 | disposition home health service (06) | DRG 291 ==
LOC: ED 08:40 → EDIP 09:30 → 5SO 10:50
PROVIDERS: ADMIT Internal Medicine; ATTEND Internal Medicine
PROC: 0W9B3ZZ Drainage of Left Pleural Cavity, Percutaneous Approach (ICD-10-PCS; principal; 2018-08-13)
DX: I13.0 Hypertensive heart and chronic kidney disease with heart failure and stage 1 through stage 4 chronic kidney disease, or unspecified chronic kidney disease (principal); I50.43 Acute on chronic combined systolic (congestive) and diastolic (congestive) heart failure; E43 Unspecified severe protein-calorie malnutrition; J18.9 Pneumonia, unspecified organism; I47.2 Ventricular tachycardia; E87.1 Hypo-osmolality and hyponatremia; I82.91 Chronic embolism and thrombosis of unspecified vein; E87.2 Acidosis; E78.5 Hyperlipidemia, unspecified; I25.5 Ischemic cardiomyopathy; K76.1 Chronic passive congestion of liver; I34.0 Nonrheumatic mitral (valve) insufficiency; F15.10 Other stimulant abuse, uncomplicated; I27.20 Pulmonary hypertension, unspecified; Z66 Do not resuscitate; N18.9 Chronic kidney disease, unspecified; I49.3 Ventricular premature depolarization; K80.20 Calculus of gallbladder without cholecystitis without obstruction; I25.10 Atherosclerotic heart disease of native coronary artery without angina pectoris; Z21 Asymptomatic human immunodeficiency virus [HIV] infection status; I25.2 Old myocardial infarction; Z95.5 Presence of coronary angioplasty implant and graft; Z91.19 Patient's noncompliance with other medical treatment and regimen; Z91.14 Patient's other noncompliance with medication regimen; Z86.73 Personal history of transient ischemic attack (TIA), and cerebral infarction without residual deficits; Z87.891 Personal history of nicotine dependence; Z88.8 Allergy status to other drugs, medicaments and biological substances
CPT/HCPCS: 32555; 36415; 71045; 71046; 76700; 80048; 80053; 80307; 82040; 82607; 82728; 82945; 83540; 83550; 83605; 83615; 83735; 83880; 84100; 84145; 84157; 84439; 84443; 84484; 85025; 85520; 85610; 87015; 87040; 87070; 87102; 87116; 87205; 87206; 88112; 88305; 89051; 93005; 93308; 93321; 93325; 99285; G0378; J0696; J1644; J1650; J1940; P9047; Q0162; J7512

== ENCOUNTER 2018-09-16 14:33 | Inpatient (IN) | payer MEDICARE, MEDICAID ==
[~2018-09-16] VITALS: Ht 180.3 cm; Wt 80.7 kg
[2018-09-16] VITALS (8 sets, daily range): BP systolic 93–113; BP diastolic 57–74
[~2018-09-16 14:33] MED LIST changes: +ATAZ300C PO; +CEFD300C37 PO; +DOXY100T PO; +FURO-93 PO; +POTA10CA PO; +RITO100T PO; +SPIR25TA5 PO
[2018-09-16] MEDS ORDERED: SODIUM CHLORIDE FLUSH 10ML SYR IVF ONE (15:00)
--- NOTE | 2018-09-16 15:25 | NUR ---
SEE TRIAGE NOTE. PT PLACED ON HEART MONITOR, BP CUFF, PULSE OX. EKG OBTAINED AT BS. IV PLACED, LABS DRAWN WITH START. 2ND IV TO BE PLACED BY MEDIC.
[2018-09-16 15:43] LABS: MEAN CORPUSCULAR HEMOGLOBIN 23.5 pg (27.5-34.5); MEAN CORPUSCULAR HGB CONC 31.6 g/dL (33.2-36.2); MEAN CORPUSCULAR VOLUME 74.4 fL (81-97); MEAN PLATELET VOLUME 8.1 fL (7.4-10.4); PLATELET COUNT 332 x10^3/uL (130-400); RED BLOOD COUNT 4.45 x10^6/uL (4.38-5.82); RED CELL DISTRIBUTION WIDTH 24.2 % (9.4-14.8)
[2018-09-16 15:50] LABS: ALBUMIN 2.8 g/dL (3.4-5.0); ANION GAP 8 mmol/L (5-15); CALCIUM 8.7 mg/dL (8.5-10.1); CHLORIDE 96 mmol/L (98-107)
[2018-09-16 15:54] LABS: ALANINE AMINOTRANSFERASE 15 U/L (12-78); ALKALINE PHOSPHATASE 149 U/L (45-117); BILIRUBIN,TOTAL 4.7 mg/dL (0.2-1.0); CREATININE 0.93 mg/dL (0.7-1.3); TOTAL PROTEIN 7.8 g/dL (6.4-8.2)
--- NOTE | 2018-09-16 16:12 | NUR ---
URINE COLLECTED/SENT TO LAB.
[2018-09-16 16:13] LABS: MD YES
--- NOTE | 2018-09-16 16:14 | NUR ---
MED REC COMPLETED WITH PT UNABLE TO CONFIRM ANY OF HIS DAILY MEDS. PT STATES MEDS GIVEN TO HIM BY [facility] AND SOMETIMES DELIVERED TO HIM AT HIS HOME. NAD AT THIS TIME.
[2018-09-16 16:17] LABS: BASOS#(MANUAL) 0.07 x10^3/uL (0-0.1); BASOS% (MANUAL) 1 % (0-1); LYMPH#(MANUAL) 1.52 x10^3/uL (1-3.4); LYMPHS% (MANUAL) 22 % (22-44); MONOS#(MANUAL) 0.62 x10^3/uL (0.3-2.7); MONOS% (MANUAL) 9 % (2-9); SEG#(MANUAL) 4.69 x10^3/uL (1.8-6.8); SEGS% (MANUAL) 68 % (42-75)
[2018-09-16 16:18] LABS: HYPOCHROMIA 1+; MICROCYTOSIS 1+; OVALOCYTES 1+; POLYCHROMASIA 1+; TARGET CELLS 1+
--- NOTE | 2018-09-16 16:19 | NUR ---
URINE COLLECTED/SENT TO LAB.
[2018-09-16 16:20] LABS: <PLATELET ESTIMATE> ADEQUATE; <PLT MORPHOLOGY> NORMAL PLT MORPH
[2018-09-16 16:27] LABS: MICROSCOPIC INDICATED
[2018-09-16 16:30] LABS: CULTURE INDICATED? NO
--- NOTE | 2018-09-16 16:52 | NUR ---
CALL FROM LAB REGARDING ERRORS IN COAGS, SPECIMEN TO BE REDRAWN. PT GASKET FORMER LIGHT, STATING BLEEDING FROM IV SITE. SITE REDRESSED, PT UPDATED ON POC. PT ASKING FOR FOOD/DRINK. PT INFORMED AGAIN OF NPO STATUS.
--- NOTE | 2018-09-16 17:10 | NUR ---
lunch coverage: assumed care of pt on behalf of primary RN for lunch break only. linens changed per pt request. lab had been to bedside for re-draw. pt to RAD via cindy
--- NOTE | 2018-09-16 17:20 | NUR ---
lunch coverage: pt returned from RAD. resting in position of comfort with lights dimmed
[2018-09-16] MEDS ORDERED: OMNIPAQUE 350 MG/ML, 100ML BOTTLE ONE (17:27)
--- NOTE | 2018-09-16 17:49 | NUR ---
lunch coverage: no changes. report to Delores SHEN
[2018-09-16] MEDS ORDERED: PANTOPRAZOLE 80 MG in SODIUM CHLORIDE 0.9% 100 ML IV SCH ×2 (18:27→19:30)
[2018-09-16] MEDS ORDERED: PANTOPRAZOLE 80 MG in SODIUM CHLORIDE 0.9% 50 ML IVPB ONE (18:27)
--- NOTE | 2018-09-16 19:11 | NUR ---
[facility] INFUSION STARTED. [facility] IN TO SEE PT. PT UPDATED ON POC, NEED FOR FFP/ADMISSION. VSS/UPDATED IN COMPUTER. COAGS REDRAWN TO BE SENT OUT TO [place] FOR DIFFERENT PROCESS. CALL LIGHT WITHIN REACH.
[2018-09-16] MEDS ORDERED: morphine SULFATE 10 MG/ML, 1ML IVPush PRN (19:30)
[2018-09-16] MEDS ORDERED: ACETAMINOPHEN 325 MG TABLET PO PRN (19:30)
[2018-09-16] MEDS ORDERED: BISACODYL 10 MG SUPP PR PRN (19:30)
[2018-09-16] MEDS ORDERED: ONDANSETRON 2MG/ML, 2ML IVPush PRN (19:30)
[2018-09-16] MEDS ORDERED: PHYTONADIONE 10 MG/ML, 1ML IM ONE (19:30)
[2018-09-16] MEDS ORDERED: POLYETHYLENE GLYCOL 17 GM PACKET PO PRN (19:30)
[2018-09-16] MEDS ORDERED: SODIUM CHLORIDE FLUSH 10ML SYR IVF PRN (19:30)
--- NOTE | 2018-09-16 19:41 | NUR ---
PT TO CT
--- NOTE | 2018-09-16 20:05 | NUR ---
PT BACK FROM CT. CONSENT SIGNED, PURPLE SLIP SENT TO BLOOD BANK.
--- NOTE | 2018-09-16 20:34 | NUR ---
NO REACTION WITH FIRST FFP TRANSFUSION. PURPLE SLIP TO BLOOD BANK FOR 2ND FFP.
--- NOTE | 2018-09-16 21:00 | NUR ---
2ND UNIT FFP TRANSFUSED. PT SLEEPING, NAD. AWAITING REPORT AND TRANSFER TO FLOOR.
--- NOTE | 2018-09-16 21:07 | NUR ---
ATTEMPT TO CALL REPORT, RN UNAVAILABLE-INFORMED WILL CALL BACK IN A FEW MINUTES.
[2018-09-16] MEDS: SODIUM CHLORIDE 0.9% 1,000 ML IV SCH (22:52)
[2018-09-17] VITALS (16 sets, daily range): BP systolic 94–108; BP diastolic 57–70
[2018-09-17 03:42] LABS: INTERNATIONAL NORMALIZED RATIO 2.91 (0.93-1.1); PROTHROMBIN TIME 29.6 Seconds (9.6-11.5)
[2018-09-17 03:45] LABS: ALBUMIN 2.7 g/dL (3.4-5.0); ANION GAP 8 mmol/L (5-15); CALCIUM 8.3 mg/dL (8.5-10.1); CHLORIDE 97 mmol/L (98-107)
[2018-09-17 03:48] LABS: ALANINE AMINOTRANSFERASE 15 U/L (12-78); ALKALINE PHOSPHATASE 114 U/L (45-117); BILIRUBIN,TOTAL 4.5 mg/dL (0.2-1.0); CREATININE 0.77 mg/dL (0.7-1.3); MEAN CORPUSCULAR HEMOGLOBIN 24.1 pg (27.5-34.5); MEAN CORPUSCULAR HGB CONC 32.7 g/dL (33.2-36.2); MEAN CORPUSCULAR VOLUME 73.6 fL (81-97); MEAN PLATELET VOLUME 7.9 fL (7.4-10.4); PLATELET COUNT 218 x10^3/uL (130-400); RED CELL DISTRIBUTION WIDTH 24.2 % (9.4-14.8); TOTAL PROTEIN 6.8 g/dL (6.4-8.2)
[2018-09-17 03:52] LABS: MD YES
[2018-09-17 03:59] LABS: ANISOCYTOSIS 1+; BAND#(MANUAL) 0.04 x10^3/uL; BANDS%(MANUAL) 1 % (0-7); EOS#(MANUAL) 0.09 x10^3/uL (0.0-0.4); EOS% (MANUAL) 2 % (1-7); HYPOCHROMIA 1+; LYMPH#(MANUAL) 0.66 x10^3/uL (1-3.4); LYMPHS% (MANUAL) 15 % (22-44); MICROCYTOSIS 1+; MONOS#(MANUAL) 0.31 x10^3/uL (0.3-2.7); MONOS% (MANUAL) 7 % (2-9); OVALOCYTES 1+; POLYCHROMASIA 1+; SEGS% (MANUAL) 75 % (42-75)
[2018-09-17 04:00] LABS: TARGET CELLS 1+
[2018-09-17 04:01] LABS: <PLATELET ESTIMATE> ADEQUATE; <PLT MORPHOLOGY> NORMAL PLT MORPH
[2018-09-17] MEDS: PANTOPRAZOLE 80 MG in SODIUM CHLORIDE 0.9% 100 ML IV SCH ×2 (05:16→14:15)
[2018-09-17] MEDS: SENNA/DOCUSATE TABLET PO SCH (09:00)
[2018-09-17] MEDS: ATAZANAVIR 150 MG PO SCH (09:20)
[2018-09-17] MEDS: EMTRICITABINE/TENOFOVIR 200 MG/300 MG TABLET PO SCH (09:20)
[2018-09-17] MEDS: RITONAVIR 100 MG TABLET PO SCH (09:20)
[2018-09-17] MEDS ORDERED: PHYTONADIONE 5 MG TABLET PO ONE (10:30)
[2018-09-17] MEDS ORDERED: MAGNESIUM SULFATE PMX 2GM/50ML 50 ML IV ONE (10:30)
[2018-09-17] MEDS: SODIUM CHLORIDE 0.9% 1,000 ML IV SCH (10:54)
[2018-09-18] VITALS (7 sets, daily range): BP systolic 84–108; BP diastolic 49–69
[2018-09-18] MEDS: PANTOPRAZOLE 80 MG in SODIUM CHLORIDE 0.9% 100 ML IV SCH ×2 (00:32→11:00)
[2018-09-18] MEDS: SODIUM CHLORIDE 0.9% 1,000 ML IV SCH ×4 (03:41→19:32)
[2018-09-18 05:18] LABS: INTERNATIONAL NORMALIZED RATIO 1.6 (0.93-1.1); PROTHROMBIN TIME 16.7 Seconds (9.6-11.5)
[2018-09-18 05:23] LABS: ANION GAP 9 mmol/L (5-15); CALCIUM 8.4 mg/dL (8.5-10.1); CHLORIDE 102 mmol/L (98-107); CREATININE 0.75 mg/dL (0.7-1.3)
[2018-09-18 05:42] LABS: MEAN CORPUSCULAR HEMOGLOBIN 23.5 pg (27.5-34.5); MEAN CORPUSCULAR HGB CONC 31.9 g/dL (33.2-36.2); MEAN CORPUSCULAR VOLUME 73.8 fL (81-97); MEAN PLATELET VOLUME 7.8 fL (7.4-10.4); PLATELET COUNT 228 x10^3/uL (130-400); RED BLOOD COUNT 3.08 x10^6/uL (4.38-5.82); RED CELL DISTRIBUTION WIDTH 24.1 % (9.4-14.8)
[2018-09-18 06:57] LABS: MD YES
[2018-09-18 06:59] LABS: <PLATELET ESTIMATE> ADEQUATE; <PLT MORPHOLOGY> NORMAL PLT MORPH; ANISOCYTOSIS 1+; BASOS#(MANUAL) 0.06 x10^3/uL (0-0.1); BASOS% (MANUAL) 2 % (0-1); EOS#(MANUAL) 0.22 x10^3/uL (0.0-0.4); EOS% (MANUAL) 7 % (1-7); HYPOCHROMIA 1+; LYMPHS% (MANUAL) 28 % (22-44); MICROCYTOSIS 1+; MONOS#(MANUAL) 0.29 x10^3/uL (0.3-2.7); MONOS% (MANUAL) 9 % (2-9); OVALOCYTES 1+; POLYCHROMASIA 1+; SEG#(MANUAL) 1.73 x10^3/uL (1.8-6.8); SEGS% (MANUAL) 54 % (42-75); TARGET CELLS 1+
[2018-09-18] MEDS ORDERED: PROPOFOL 10 MG/ML, 20ML ONE (07:49)
[2018-09-18] MEDS ORDERED: OXYcodone 5 MG/5 ML ORAL.SOL UDC PO PRN (08:30)
[2018-09-18] MEDS ORDERED: hydrALAzine 20 MG/ML, 1ML IV PRN (08:30)
[2018-09-18] MEDS ORDERED: MEPERIDINE/PF 25MG/0.5ML IVPush PRN (08:30)
[2018-09-18] MEDS ORDERED: HYDROmorphone 2 MG/ML, 1ML IVPush PRN (08:30)
[2018-09-18] MEDS ORDERED: ONDANSETRON 2MG/ML, 2ML IV PRN (08:30)
[2018-09-18] MEDS ORDERED: PROMETHAZINE 12.5 MG SUPP PR PRN (08:30)
[2018-09-18] MEDS ORDERED: FENTANYL PF 100 MCG/2ML IV PRN (08:30)
[2018-09-18] MEDS ORDERED: LABETALOL 5MG/ML, 20ML IV PRN (08:30)
[2018-09-18] MEDS ORDERED: MIDAZOLAM 1 MG/ML, 2ML IV PRN (08:30)
[2018-09-18] MEDS ORDERED: DIAZEPAM 5 MG/ML, 2ML IVPush PRN (08:30)
[2018-09-18] MEDS ORDERED: HALOPERIDOL 5 MG/ML IV PRN (08:30)
[2018-09-18] MEDS ORDERED: ONDANSETRON ODT 8 MG PO PRN (08:30)
[2018-09-18] MEDS ORDERED: PROMETHAZINE 25 MG/ML, 1ML IV PRN (08:30)
[2018-09-18] MEDS ORDERED: ALBUTEROL SULFATE 2.5 MG/3 ML NPPB PRN (08:30)
[2018-09-18] MEDS ORDERED: MORPHINE SULFATE 4 MG/ML, 1ML IVPush PRN (08:30)
[2018-09-18] MEDS ORDERED: EPHEDRINE 50 MG/ML, 1ML IVPush PRN (08:30)
[2018-09-18] MEDS ORDERED: FENTANYL PF 100 MCG/2ML ONE (08:39)
[2018-09-18] MEDS: ATAZANAVIR 150 MG PO SCH (09:00)
[2018-09-18] MEDS: SENNA/DOCUSATE TABLET PO SCH (09:00)
[2018-09-18] MEDS: RITONAVIR 100 MG TABLET PO SCH (09:00)
[2018-09-18] MEDS: EMTRICITABINE/TENOFOVIR 200 MG/300 MG TABLET PO SCH (10:14)
[2018-09-18] MEDS ORDERED: SODIUM CHLORIDE 0.9% 1,000ML IVBOLUS ONE (10:30)
[2018-09-19 00:18] VITALS: BP_SYST 83; BP_SYST 93; BP_DIAS 44
[2018-09-19 00:38] VITALS: BP 101/67
[2018-09-19] MEDS: SODIUM CHLORIDE 0.9% 1,000 ML IV SCH ×4 (00:39→23:41)
[2018-09-19 06:30] LABS: MEAN CORPUSCULAR HEMOGLOBIN 24.5 pg (27.5-34.5); MEAN CORPUSCULAR HGB CONC 32.5 g/dL (33.2-36.2); MEAN CORPUSCULAR VOLUME 75.2 fL (81-97); MEAN PLATELET VOLUME 7.9 fL (7.4-10.4); PLATELET COUNT 230 x10^3/uL (130-400); RED BLOOD COUNT 3.43 x10^6/uL (4.38-5.82); RED CELL DISTRIBUTION WIDTH 24.1 % (9.4-14.8)
[2018-09-19 06:31] LABS: CALCIUM 8.4 mg/dL (8.5-10.1); CHLORIDE 106 mmol/L (98-107)
[2018-09-19 06:37] LABS: ALANINE AMINOTRANSFERASE 16 U/L (12-78); ALBUMIN 2.6 g/dL (3.4-5.0); ALKALINE PHOSPHATASE 105 U/L (45-117); ANION GAP 7 mmol/L (5-15); BILIRUBIN,TOTAL 3.1 mg/dL (0.2-1.0); CREATININE 0.79 mg/dL (0.7-1.3); TOTAL PROTEIN 6.3 g/dL (6.4-8.2)
[2018-09-19 07:02] LABS: MD YES
[2018-09-19 07:07] VITALS: BP 96/55
[2018-09-19 07:17] LABS: <PLATELET ESTIMATE> ADEQUATE; <PLT MORPHOLOGY> NORMAL PLT MORPH; ANISOCYTOSIS 1+; BASOS#(MANUAL) 0.04 x10^3/uL (0-0.1); BASOS% (MANUAL) 1 % (0-1); EOS#(MANUAL) 0.15 x10^3/uL (0.0-0.4); EOS% (MANUAL) 4 % (1-7); HYPOCHROMIA 1+; LYMPH#(MANUAL) 0.93 x10^3/uL (1-3.4); LYMPHS% (MANUAL) 25 % (22-44); MICROCYTOSIS 1+; MONOS#(MANUAL) 0.41 x10^3/uL (0.3-2.7); MONOS% (MANUAL) 11 % (2-9); OVALOCYTES 1+; POLYCHROMASIA 1+; SEG#(MANUAL) 2.18 x10^3/uL (1.8-6.8); SEGS% (MANUAL) 59 % (42-75); TARGET CELLS 1+
[2018-09-19] MEDS: EMTRICITABINE/TENOFOVIR 200 MG/300 MG TABLET PO SCH (08:19)
[2018-09-19] MEDS: RITONAVIR 100 MG TABLET PO SCH (08:19)
[2018-09-19] MEDS: ATAZANAVIR 150 MG PO SCH (08:19)
[2018-09-19] MEDS: SENNA/DOCUSATE TABLET PO SCH (08:20)
[2018-09-19] MEDS ORDERED: LIDOCAINE 1%, 10ML IM ONE (10:30)
[2018-09-19 12:41] VITALS: BP 110/70
[2018-09-19 19:37] VITALS: BP 122/81
[2018-09-20 01:19] VITALS: BP 104/64
[2018-09-20 03:23] VITALS: BP 104/66
[2018-09-20 06:03] LABS: INTERNATIONAL NORMALIZED RATIO 1.21 (0.93-1.1); PROTHROMBIN TIME 12.7 Seconds (9.6-11.5)
[2018-09-20 06:07] LABS: CHLORIDE 108 mmol/L (98-107)
[2018-09-20 06:16] LABS: MEAN CORPUSCULAR HEMOGLOBIN 23.9 pg (27.5-34.5); MEAN CORPUSCULAR HGB CONC 31.6 g/dL (33.2-36.2); MEAN CORPUSCULAR VOLUME 75.7 fL (81-97); MEAN PLATELET VOLUME 7.5 fL (7.4-10.4); PLATELET COUNT 274 x10^3/uL (130-400); RED CELL DISTRIBUTION WIDTH 23.9 % (9.4-14.8)
[2018-09-20 06:21] LABS: ALANINE AMINOTRANSFERASE 13 U/L (12-78); ALBUMIN 2.5 g/dL (3.4-5.0); ALKALINE PHOSPHATASE 95 U/L (45-117); ANION GAP 9 mmol/L (5-15); BILIRUBIN,TOTAL 1.9 mg/dL (0.2-1.0); CALCIUM 8.3 mg/dL (8.5-10.1); CREATININE 0.78 mg/dL (0.7-1.3); TOTAL PROTEIN 6.1 g/dL (6.4-8.2)
[2018-09-20 06:49] VITALS: BP 103/62
[2018-09-20 07:14] LABS: ANISOCYTOSIS 1+; BASOPHILS # (AUTO) 0.01 x10^3/uL (0-0.1); BASOPHILS % (AUTO) 0 % (0-1); EOSINOPHILS # (AUTO) 0.14 x10^3/uL (0-0.4); EOSINOPHILS % (AUTO) 4 % (1-7); HYPOCHROMIA 1+; LYMPHOCYTES % (AUTO) 26 % (22-44); MD MORPH REVIEW ONLY; MICROCYTOSIS 1+; MONOCYTES # (AUTO) 0.34 x10^3/uL (0.2-0.8); MONOCYTES % (AUTO) 10 % (2-9); NEUTROPHILS # (AUTO) 2.07 x10^3/uL (1.8-6.8); NEUTROPHILS % (AUTO) 60 % (42-75); OVALOCYTES 1+; POLYCHROMASIA 1+
[2018-09-20 07:15] LABS: <PLATELET ESTIMATE> ADEQUATE; <PLT MORPHOLOGY> NORMAL PLT MORPH; TARGET CELLS 1+
== END 2018-09-20 08:02 | disposition left against medical advice (07) | DRG 377 ==
LOC: ED 18:36 → EDIP 20:08 → 4EST 21:27
PROVIDERS: ADMIT Hospitalist; ATTEND Hospitalist
PROC: 30233N1 Transfusion of Nonautologous Red Blood Cells into Peripheral Vein, Percutaneous Approach (ICD-10-PCS; 2018-09-17)
PROC: 30233K1 Transfusion of Nonautologous Frozen Plasma into Peripheral Vein, Percutaneous Approach (ICD-10-PCS; 2018-09-18)
PROC: 0DJ08ZZ Inspection of Upper Intestinal Tract, Via Natural or Artificial Opening Endoscopic (ICD-10-PCS; principal; 2018-09-18 08:00)
PROC: 0W9G3ZZ Drainage of Peritoneal Cavity, Percutaneous Approach (ICD-10-PCS; 2018-09-19)
DX: K92.1 Melena (principal); K66.1 Hemoperitoneum; E87.1 Hypo-osmolality and hyponatremia; E44.1 Mild protein-calorie malnutrition; D62 Acute posthemorrhagic anemia; D68.9 Coagulation defect, unspecified; I47.2 Ventricular tachycardia; I50.22 Chronic systolic (congestive) heart failure; R17 Unspecified jaundice; R18.8 Other ascites; Z88.8 Allergy status to other drugs, medicaments and biological substances; E78.5 Hyperlipidemia, unspecified; E83.42 Hypomagnesemia; F12.10 Cannabis abuse, uncomplicated; F15.10 Other stimulant abuse, uncomplicated; I11.0 Hypertensive heart disease with heart failure; I25.10 Atherosclerotic heart disease of native coronary artery without angina pectoris; I25.2 Old myocardial infarction; I25.5 Ischemic cardiomyopathy; I27.20 Pulmonary hypertension, unspecified; I34.0 Nonrheumatic mitral (valve) insufficiency; I51.3 Intracardiac thrombosis, not elsewhere classified; K59.00 Constipation, unspecified; T45.515A Adverse effect of anticoagulants, initial encounter; Y92.89 Other specified places as the place of occurrence of the external cause; Z79.01 Long term (current) use of anticoagulants; Z86.73 Personal history of transient ischemic attack (TIA), and cerebral infarction without residual deficits; Z86.79 Personal history of other diseases of the circulatory system; Z87.891 Personal history of nicotine dependence; Z95.5 Presence of coronary angioplasty implant and graft; Z53.21 Procedure and treatment not carried out due to patient leaving prior to being seen by health care provider; Z68.24 Body mass index [BMI] 24.0-24.9, adult
CPT/HCPCS: 36415; 49083; 71250; 74177; 80048; 80053; 81001; 82728; 83540; 83550; 83690; 83735; 84157; 85014; 85018; 85025; 85610; 85730; 86850; 86900; 86923; 87070; 87205; 88112; 88305; 89051; 93005; 96372; 96374; G0378; J2704; J3010; J3430; J3490; Q9967; C9113; J3475; J7030; P9016; P9017

== ENCOUNTER 2018-12-29 14:28 | Inpatient (IN) | payer MEDICARE, MEDICAID ==
[~2018-12-29] VITALS: Ht 180.3 cm; Wt 92.2 kg
[~2018-12-29 14:28] MED LIST changes: +ETOMIDATE 20 MG/10 ML ONE; +ROCURONIUM 10MG/ML,5ML ONE
[2018-12-29] MEDS ORDERED: SPIR25TA5 PO (14:48)
[2018-12-29] MEDS ORDERED: CEFTRIAXONE PMX 1GM/50ML 50 ML ONE (14:58)
[2018-12-29] MEDS ORDERED: SODIUM CHLORIDE FLUSH 10ML SYR IVF ONE (15:00)
[2018-12-29] MEDS ORDERED: CEFTRIAXONE PMX 1GM/50ML 50 ML IVPB ONE (15:00)
[2018-12-29] MEDS ORDERED: AZITHROMYCIN 500 MG in SODIUM CHLORIDE 0.9% 250 ML IVPB ONE (15:00)
--- NOTE | 2018-12-29 15:06 | NUR ---
pt laying on cindy awake & mostly calm- oacc agitation but easily redirected, responds approp to staff, NAD, comfort measures provided, call light within reach. Addendum: 12/29/18 at 1515 by RAZA pt laying on cindy awake & mostly calm- occas agitation but easily redirected, responds approp to staff, NAD, comfort measures provided, call light within reach.
[2018-12-29 15:27] LABS: ALANINE AMINOTRANSFERASE 11 U/L (12-78); CREATININE 1.53 mg/dL (0.7-1.3)
[2018-12-29 15:32] LABS: ALKALINE PHOSPHATASE 126 U/L (45-117); TOTAL PROTEIN 8.2 g/dL (6.4-8.2)
[2018-12-29 15:56] LABS: ANION GAP 14 mmol/L (5-15); CALCIUM 8.3 mg/dL (8.5-10.1); CHLORIDE 96 mmol/L (98-107)
[2018-12-29 16:04] LABS: MD YES; MEAN CORPUSCULAR HEMOGLOBIN 20.8 pg (27.5-34.5); MEAN CORPUSCULAR VOLUME 69.5 fL (81-97); MEAN PLATELET VOLUME 9.8 fL (7.4-10.4); PLATELET COUNT 298 x10^3/uL (130-400); RED BLOOD COUNT 6.41 x10^6/uL (4.38-5.82); RED CELL DISTRIBUTION WIDTH 21.8 % (9.4-14.8)
--- NOTE | 2018-12-29 16:05 | NUR ---
pt continues laying on gurney awake & mostly calm, responds approp to staff, NAD, comfort measures provided, call light within reach.
[2018-12-29 16:07] LABS: BANDS%(MANUAL) 1 % (0-7); LYMPHS% (MANUAL) 22 % (22-44); MONOS% (MANUAL) 4 % (2-9); SEGS% (MANUAL) 73 % (42-75); TROPONIN I 0.167 ng/mL (0.000-0.045)
[2018-12-29 16:08] LABS: ANISOCYTOSIS 1+; HYPOCHROMIA 1+; MICROCYTOSIS 1+; OVALOCYTES 1+; POLYCHROMASIA 1+
[2018-12-29 16:09] LABS: <PLATELET ESTIMATE> ADEQUATE; LARGE PLATELETS 1+; TEAR DROPS 1+
[2018-12-29 16:10] LABS: MEAN CORPUSCULAR HGB CONC 29.9 g/dL (33.2-36.2)
[2018-12-29 16:14] LABS: BAND#(MANUAL) 0.04 x10^3/uL
[2018-12-29 16:15] LABS: LYMPH#(MANUAL) 0.95 x10^3/uL (1-3.4); MONOS#(MANUAL) 0.17 x10^3/uL (0.3-2.7); SEG#(MANUAL) 3.14 x10^3/uL (1.8-6.8)
[2018-12-29] MEDS ORDERED: ASPIRIN 81 MG TABLET CHEW ONE (16:43)
[2018-12-29] MEDS ORDERED: ASPIRIN 81 MG TABLET CHEW PO ONE (17:00)
[2018-12-29] MEDS ORDERED: SODIUM CHLORIDE 0.9% 1,000ML IVBOLUS ONE (17:00)
--- NOTE | 2018-12-29 17:01 | NUR ---
pt laying on gurney awake & mostly calm, responds approp to staff, NAD, comfort measures provided, call light within reach.
--- NOTE | 2018-12-29 17:56 | NUR ---
pt sitting up on gurney awake & often anxious requiring frequent redirection- ERP aware, responds approp to staff, NAD, comfort measures provided, call light within reach.
[2018-12-29] MEDS ORDERED: LORazepam 2 MG/ML, 1ML IVPush ONE (18:00)
[2018-12-29] MEDS ORDERED: LORazepam 2 MG/ML, 1ML ONE (18:10)
[2018-12-29] MEDS ORDERED: ONDANSETRON 2MG/ML, 2ML IVPush PRN (19:00)
--- NOTE | 2018-12-29 19:05 | NUR ---
report given to Nas SHEN
[2018-12-29 20:38] LABS: INTERNATIONAL NORMALIZED RATIO 1.58 (0.93-1.1); PROTHROMBIN TIME 16.3 Seconds (9.6-11.5)
[2018-12-29 21:45] VITALS: BP 85/60
[2018-12-29] MEDS ORDERED: ALBUMIN HUMAN 5% 500 ML IV ONE (22:30)
[2018-12-29] MEDS: NOREPINEPHRINE 4 MG in SODIUM CHLORIDE 0.9% 246 ML IV PRN (22:52)
[2018-12-29] MEDS ORDERED: FENTANYL PF 100 MCG/2ML ONE (23:56)
[2018-12-30] MEDS ORDERED: VANCOMYCIN PER PHARMACY MC PRN (00:30)
[2018-12-30] MEDS ORDERED: PHARMACY MAY ADJ FOR RENAL FX MC PRN (00:30)
[2018-12-30] MEDS ORDERED: ZOSYN PER PHARMACY MC PRN (00:30)
[2018-12-30] MEDS ORDERED: PHARMACOKINETIC MONITORING MC PRN (00:30)
[2018-12-30] MEDS ORDERED: PHARMACOKINETIC CONSULTATION MC ONE (00:30)
[2018-12-30] MEDS ORDERED: VANCOMYCIN 1,500 MG in SODIUM CHLORIDE 0.9% 250 ML IV SCH (00:30)
[2018-12-30] MEDS ORDERED: SODIUM CHLORIDE 0.9% 1,000ML IVBOLUS ONE (00:30)
[2018-12-30] MEDS: PIPERACILLIN/TAZO/PMX 4.5GM 100 ML IV SCH ×4 (02:54→20:38)
[2018-12-30 04:00] VITALS: BP 92/60
[2018-12-30 07:31] LABS: TROPONIN I 0.195 ng/mL (0.000-0.045)
[2018-12-30 08:27] LABS: ALANINE AMINOTRANSFERASE 71 U/L (12-78); ALBUMIN 3.1 g/dL (3.4-5.0); ANION GAP 21 mmol/L (5-15); CALCIUM 8.5 mg/dL (8.5-10.1); CHLORIDE 96 mmol/L (98-107); CREATININE 1.93 mg/dL (0.7-1.3)
[2018-12-30 08:29] LABS: ALKALINE PHOSPHATASE 122 U/L (45-117); BILIRUBIN,TOTAL 9.3 mg/dL (0.2-1.0); TOTAL PROTEIN 7.2 g/dL (6.4-8.2)
[2018-12-30 08:40] LABS: MEAN CORPUSCULAR HEMOGLOBIN 21.1 pg (27.5-34.5); PLATELET COUNT 226 x10^3/uL (130-400); RED BLOOD COUNT 5.85 x10^6/uL (4.38-5.82); RED CELL DISTRIBUTION WIDTH 22.9 % (9.4-14.8)
[2018-12-30 09:00] LABS: MD YES; MEAN CORPUSCULAR HGB CONC 29.7 g/dL (33.2-36.2)
[2018-12-30 09:02] LABS: ANISOCYTOSIS 1+; BAND#(MANUAL) 0.22 x10^3/uL; BANDS%(MANUAL) 2 % (0-7); LYMPH#(MANUAL) 0.22 x10^3/uL (1-3.4); LYMPHS% (MANUAL) 2 % (22-44); MONOS% (MANUAL) 9 % (2-9); MYELOCYTES# (MANUAL) 0.11 x10^3/uL (0-0); MYELOCYTES% (MANUAL) 1 % (0-0); NRBC % (MANUAL) 1 % (0-1); SEG#(MANUAL) 9.55 x10^3/uL (1.8-6.8); SEGS% (MANUAL) 86 % (42-75)
[2018-12-30 09:03] LABS: MICROCYTOSIS 1+; POLYCHROMASIA 1+
[2018-12-30 09:04] LABS: HYPOCHROMIA 2+; OVALOCYTES 1+; TARGET CELLS 1+
[2018-12-30 09:05] LABS: <PLATELET ESTIMATE> ADEQUATE; <PLT MORPHOLOGY> NORMAL PLT MORPH; LARGE PLATELETS 1+
[2018-12-30] MEDS: DEXTROSE 5% 1,000 ML IV SCH ×2 (09:11→20:39)
[2018-12-30] MEDS ORDERED: DEXTROSE 50%, 50ML SYRINGE IVPush ONE (09:30)
[2018-12-30] MEDS: NOREPINEPHRINE 4 MG in SODIUM CHLORIDE 0.9% 246 ML IV PRN (11:11)
[2018-12-30] MEDS ORDERED: FENTANYL PF 100 MCG/2ML ONE (12:19)
[2018-12-30] MEDS: FENTANYL PF 100 MCG/2ML IVPush PRN (12:26)
[2018-12-30] MEDS ORDERED: MORPHINE SULFATE 4 MG/ML, 1ML IVPush PRN (12:30)
[2018-12-30 16:48] LABS: AMPHETAMINE SCREEN, URINE Positive (Negative); BARBITURATE SCREEN, URINE Negative (Negative); BENZODIAZEPINE SCREEN, URINE Negative (Negative); CANNABINOID SCREEN, URINE Negative (Negative); COCAINE SCREEN, URINE Negative (Negative); METHADONE SCREEN, URINE Negative (Negative); OPIATE SCREEN, URINE Negative (Negative)
[2018-12-30] MEDS: VANCOMYCIN 1,500 MG in SODIUM CHLORIDE 0.9% 250 ML IV SCH (21:18)
[2018-12-30 21:25] VITALS: BP 130/90
[2018-12-31 00:46] LABS: TROPONIN I 0.213 ng/mL (0.000-0.045)
[2018-12-31] MEDS: PIPERACILLIN/TAZO/PMX 4.5GM 100 ML IV SCH ×4 (02:48→20:56)
[2018-12-31 04:15] VITALS: BP 88/58
[2018-12-31 06:53] LABS: TROPONIN I 0.198 ng/mL (0.000-0.045)
[2018-12-31 08:52] LABS: ALBUMIN 2.2 g/dL (3.4-5.0); ANION GAP 10 mmol/L (5-15); CALCIUM 6.8 mg/dL (8.5-10.1); CHLORIDE 82 mmol/L (98-107)
[2018-12-31 08:55] LABS: ALANINE AMINOTRANSFERASE 200 U/L (12-78); ALKALINE PHOSPHATASE 86 U/L (45-117); BILIRUBIN,TOTAL 5.7 mg/dL (0.2-1.0); CREATININE 1.58 mg/dL (0.7-1.3); TOTAL PROTEIN 5.5 g/dL (6.4-8.2)
[2018-12-31 09:26] LABS: MEAN CORPUSCULAR HEMOGLOBIN 20.8 pg (27.5-34.5); MEAN CORPUSCULAR HGB CONC 30.1 g/dL (33.2-36.2); MEAN PLATELET VOLUME 9.9 fL (7.4-10.4); PLATELET COUNT 193 x10^3/uL (130-400); RED BLOOD COUNT 4.58 x10^6/uL (4.38-5.82); RED CELL DISTRIBUTION WIDTH 22.3 % (9.4-14.8)
[2018-12-31 09:27] LABS: MD YES
[2018-12-31 09:30] LABS: ANISOCYTOSIS 1+; LYMPH#(MANUAL) 0.92 x10^3/uL (1-3.4); LYMPHS% (MANUAL) 17 % (22-44); MICROCYTOSIS 1+; MONOS#(MANUAL) 0.32 x10^3/uL (0.3-2.7); MONOS% (MANUAL) 6 % (2-9); NRBC % (MANUAL) 1 % (0-1); SEG#(MANUAL) 4.16 x10^3/uL (1.8-6.8); SEGS% (MANUAL) 77 % (42-75)
[2018-12-31 09:31] LABS: <PLATELET ESTIMATE> ADEQUATE; HYPOCHROMIA 1+; POLYCHROMASIA 1+; TARGET CELLS 1+
[2018-12-31 09:32] LABS: LARGE PLATELETS 1+
[2018-12-31 09:33] LABS: OVALOCYTES 1+
[2018-12-31] MEDS: DEXTROSE 5% 1,000 ML IV SCH (09:33)
[2018-12-31 09:57] LABS: ALANINE AMINOTRANSFERASE 230 U/L (12-78); ALBUMIN 2.5 g/dL (3.4-5.0); ANION GAP 10 mmol/L (5-15); CALCIUM 7.6 mg/dL (8.5-10.1); CHLORIDE 93 mmol/L (98-107)
[2018-12-31 09:59] LABS: ALKALINE PHOSPHATASE 99 U/L (45-117); BILIRUBIN,TOTAL 6.5 mg/dL (0.2-1.0); TOTAL PROTEIN 6.3 g/dL (6.4-8.2)
[2018-12-31] MEDS: ENOXAPARIN 40 MG/0.4 ML SQ SCH (10:37)
[2018-12-31] MEDS ORDERED: FUROSEMIDE 20 MG/2 ML IV ONE (12:00)
[2018-12-31] MEDS: SODIUM CHLORIDE 0.9% 1,000 ML IV SCH (12:16)
[2018-12-31 15:39] LABS: ANION GAP 9 mmol/L (5-15); CALCIUM 7.5 mg/dL (8.5-10.1); CHLORIDE 96 mmol/L (98-107); CREATININE 1.56 mg/dL (0.7-1.3)
[2018-12-31 15:49] LABS: TROPONIN I 0.173 ng/mL (0.000-0.045)
[2018-12-31] MEDS: VANCOMYCIN 1,500 MG in SODIUM CHLORIDE 0.9% 250 ML IV SCH (16:41)
[2018-12-31] MEDS: POTASSIUM CHLORIDE 20 MEQ TAB.ER.PRT PO SCH (16:43)
[2018-12-31 21:35] LABS: ANION GAP 7 mmol/L (5-15); CALCIUM 7.4 mg/dL (8.5-10.1); CHLORIDE 97 mmol/L (98-107); CREATININE 1.42 mg/dL (0.7-1.3)
[2019-01-01] MEDS: SODIUM CHLORIDE 0.9% 1,000 ML IV SCH (03:46)
[2019-01-01] MEDS: PIPERACILLIN/TAZO/PMX 4.5GM 100 ML IV SCH ×4 (03:46→21:02)
[2019-01-01 04:15] LABS: ALBUMIN 2.4 g/dL (3.4-5.0); ANION GAP 7 mmol/L (5-15); CALCIUM 7.2 mg/dL (8.5-10.1); CHLORIDE 99 mmol/L (98-107)
[2019-01-01 04:19] LABS: ALANINE AMINOTRANSFERASE 209 U/L (12-78); ALKALINE PHOSPHATASE 94 U/L (45-117); CREATININE 1.29 mg/dL (0.7-1.3); TOTAL PROTEIN 5.8 g/dL (6.4-8.2)
[2019-01-01 04:25] LABS: MEAN CORPUSCULAR HEMOGLOBIN 21.3 pg (27.5-34.5); MEAN CORPUSCULAR HGB CONC 30.7 g/dL (33.2-36.2); MEAN CORPUSCULAR VOLUME 69.6 fL (81-97); MEAN PLATELET VOLUME 8.9 fL (7.4-10.4); PLATELET COUNT 159 x10^3/uL (130-400); RED BLOOD COUNT 4.92 x10^6/uL (4.38-5.82); RED CELL DISTRIBUTION WIDTH 22.4 % (9.4-14.8)
[2019-01-01 05:44] LABS: MD YES
[2019-01-01 05:46] LABS: EOS#(MANUAL) 0.07 x10^3/uL (0.0-0.4); EOS% (MANUAL) 1 % (1-7); LYMPH#(MANUAL) 1.02 x10^3/uL (1-3.4); LYMPHS% (MANUAL) 15 % (22-44); MONOS% (MANUAL) 3 % (2-9); NRBC % (MANUAL) 1 % (0-1); SEG#(MANUAL) 5.51 x10^3/uL (1.8-6.8); SEGS% (MANUAL) 81 % (42-75)
[2019-01-01 05:47] LABS: ANISOCYTOSIS 1+; HYPOCHROMIA 1+; MICROCYTOSIS 1+; POLYCHROMASIA 1+; TARGET CELLS 1+
[2019-01-01 05:48] LABS: <PLATELET ESTIMATE> ADEQUATE; LARGE PLATELETS 1+
[2019-01-01] MEDS: ENOXAPARIN 40 MG/0.4 ML SQ SCH (09:11)
[2019-01-01] MEDS: POTASSIUM CHLORIDE 20 MEQ TAB.ER.PRT PO SCH ×2 (09:11→13:42)
[2019-01-01] MEDS: OXYcodone IR 5MG TABLET PO PRN ×4 (09:21→21:55)
[2019-01-01] MEDS ORDERED: MAGNESIUM SULFATE PMX 2GM/50ML 50 ML IV ONE (09:30)
[2019-01-01] MEDS: VANCOMYCIN 1,500 MG in SODIUM CHLORIDE 0.9% 250 ML IV SCH (09:39)
[2019-01-01] MEDS: FENTANYL PF 100 MCG/2ML IVPush PRN (10:06)
[2019-01-01 10:19] LABS: ANION GAP 7 mmol/L (5-15); CALCIUM 7.3 mg/dL (8.5-10.1); CHLORIDE 97 mmol/L (98-107); CREATININE 1.17 mg/dL (0.7-1.3)
[2019-01-01 10:51] LABS: MEAN CORPUSCULAR HEMOGLOBIN 20.8 pg (27.5-34.5); MEAN CORPUSCULAR HGB CONC 30.2 g/dL (33.2-36.2); MEAN CORPUSCULAR VOLUME 69.1 fL (81-97); MEAN PLATELET VOLUME 8.9 fL (7.4-10.4); PLATELET COUNT 159 x10^3/uL (130-400); RED BLOOD COUNT 5.24 x10^6/uL (4.38-5.82); RED CELL DISTRIBUTION WIDTH 22.3 % (9.4-14.8)
[2019-01-01 10:52] LABS: BASOPHILS # (AUTO) 0.01 x10^3/uL (0-0.1); BASOPHILS % (AUTO) 0 % (0-1); EOSINOPHILS # (AUTO) 0.05 x10^3/uL (0-0.4); EOSINOPHILS % (AUTO) 1 % (1-7); LYMPHOCYTES # (AUTO) 0.83 x10^3/uL (1-3.4); LYMPHOCYTES % (AUTO) 14 % (22-44); MD SCAN; MONOCYTES # (AUTO) 0.33 x10^3/uL (0.2-0.8); MONOCYTES % (AUTO) 5 % (2-9); NEUTROPHILS # (AUTO) 4.87 x10^3/uL (1.8-6.8); NEUTROPHILS % (AUTO) 80 % (42-75)
[2019-01-01] MEDS: GABAPENTIN 100 MG CAPSULE PO SCH ×3 (16:11→21:07)
[2019-01-01] MEDS: POTASSIUM ACID PHOSPHATE 500 MG TABLET.SOL PO SCH ×2 (18:05→23:30)
[2019-01-01 19:05] VITALS: BP 103/62
[2019-01-01] MEDS ORDERED: MORPHINE SULFATE 4 MG/ML, 1ML IVPush PRN (20:30)
[2019-01-02 00:29] VITALS: BP 116/73
[2019-01-02] MEDS: OXYcodone IR 5MG TABLET PO PRN ×3 (02:31→22:07)
[2019-01-02 02:43] LABS: MEAN CORPUSCULAR HGB CONC 30.2 g/dL (33.2-36.2); MEAN CORPUSCULAR VOLUME 69.5 fL (81-97); MEAN PLATELET VOLUME 8.9 fL (7.4-10.4); PLATELET COUNT 161 x10^3/uL (130-400); RED BLOOD COUNT 5.32 x10^6/uL (4.38-5.82); RED CELL DISTRIBUTION WIDTH 22.8 % (9.4-14.8)
[2019-01-02] MEDS: PIPERACILLIN/TAZO/PMX 4.5GM 100 ML IV SCH ×4 (02:44→22:12)
[2019-01-02 02:53] LABS: % IRON SATURATION 6 % (20-55); ALANINE AMINOTRANSFERASE 193 U/L (12-78); ALBUMIN 2.6 g/dL (3.4-5.0); ANION GAP 6 mmol/L (5-15); CALCIUM 7.7 mg/dL (8.5-10.1); CHLORIDE 99 mmol/L (98-107); CREATININE 1.11 mg/dL (0.7-1.3); IRON LEVEL 25 mcg/dL (65-175); TOTAL IRON BINDING CAPACITY 449 mcg/dL (250-450)
[2019-01-02 02:56] LABS: ALKALINE PHOSPHATASE 103 U/L (45-117); BILIRUBIN,INDIRECT 2.3 mg/dL (0.0-2.0); BILIRUBIN,TOTAL 4.3 mg/dL (0.2-1.0); TOTAL PROTEIN 6.6 g/dL (6.4-8.2)
[2019-01-02 03:11] LABS: BASOPHILS # (AUTO) 0.05 x10^3/uL (0-0.1); BASOPHILS % (AUTO) 1 % (0-1); EOSINOPHILS % (AUTO) 2 % (1-7); LYMPHOCYTES # (AUTO) 1.11 x10^3/uL (1-3.4); LYMPHOCYTES % (AUTO) 18 % (22-44); MD SCAN; MONOCYTES # (AUTO) 0.48 x10^3/uL (0.2-0.8); MONOCYTES % (AUTO) 8 % (2-9); NEUTROPHILS # (AUTO) 4.53 x10^3/uL (1.8-6.8); NEUTROPHILS % (AUTO) 72 % (42-75)
[2019-01-02] MEDS: VANCOMYCIN 1,500 MG in SODIUM CHLORIDE 0.9% 250 ML IV SCH (04:03)
[2019-01-02] MEDS: POTASSIUM ACID PHOSPHATE 500 MG TABLET.SOL PO SCH ×2 (04:07→11:30)
[2019-01-02 07:20] VITALS: BP 118/78
[2019-01-02] MEDS: ENOXAPARIN 40 MG/0.4 ML SQ SCH (08:49)
[2019-01-02] MEDS: GABAPENTIN 100 MG CAPSULE PO SCH ×3 (08:49→22:06)
[2019-01-02 14:00] VITALS: BP 117/88
[2019-01-02] MEDS ORDERED: DILTIAZEM 5 MG/ML, 5ML IVPush PRN (16:00)
[2019-01-02 18:43] VITALS: BP 120/86
[2019-01-03 03:33] VITALS: BP 102/74
[2019-01-03] MEDS: PIPERACILLIN/TAZO/PMX 4.5GM 100 ML IV SCH ×4 (03:55→23:11)
[2019-01-03] MEDS: OXYcodone IR 5MG TABLET PO PRN ×3 (04:03→23:20)
[2019-01-03 06:45] VITALS: BP 138/91
[2019-01-03] MEDS ORDERED: SODIUM PHOSPHATE 4 MEQ/ML IV SCH (07:30)
[2019-01-03] MEDS ORDERED: SODIUM PHOSPHATE 30 MMOL in SODIUM CHLORIDE 0.9% 500 ML IV ONE (08:30)
[2019-01-03] MEDS: morphine SULFATE 10 MG/ML, 1ML IVPush PRN ×2 (09:14→20:28)
[2019-01-03] MEDS: ENOXAPARIN 40 MG/0.4 ML SQ SCH (09:15)
[2019-01-03] MEDS: GABAPENTIN 100 MG CAPSULE PO SCH ×3 (09:15→20:28)
[2019-01-03 12:10] LABS: HCT (SEDRATE) 36.4 % (39.2-51.8)
[2019-01-03 12:13] VITALS: BP 120/86
[2019-01-03 12:36] LABS: C-REACTIVE PROTEIN, QUANT 7.4 mg/dL (0.02-0.49)
[2019-01-03] MEDS ORDERED: OMNIPAQUE 350 MG/ML, 75ML BOTTLE ONE (15:03)
[2019-01-03 19:19] VITALS: BP 108/77
[2019-01-04 02:13] VITALS: BP 120/82
[2019-01-04] MEDS: PIPERACILLIN/TAZO/PMX 4.5GM 100 ML IV SCH ×4 (04:33→22:39)
[2019-01-04] MEDS: OXYcodone IR 5MG TABLET PO PRN ×4 (04:39→22:31)
[2019-01-04 04:55] LABS: MEAN CORPUSCULAR HEMOGLOBIN 21.2 pg (27.5-34.5); MEAN CORPUSCULAR HGB CONC 30.6 g/dL (33.2-36.2); MEAN CORPUSCULAR VOLUME 69.1 fL (81-97); MEAN PLATELET VOLUME 9.9 fL (7.4-10.4); PLATELET COUNT 187 x10^3/uL (130-400); RED BLOOD COUNT 4.95 x10^6/uL (4.38-5.82); RED CELL DISTRIBUTION WIDTH 22.8 % (9.4-14.8)
[2019-01-04 05:03] LABS: ALBUMIN 2.3 g/dL (3.4-5.0); ANION GAP 10 mmol/L (5-15); CALCIUM 7.8 mg/dL (8.5-10.1); CHLORIDE 93 mmol/L (98-107)
[2019-01-04 05:08] LABS: ALANINE AMINOTRANSFERASE 103 U/L (12-78); ALKALINE PHOSPHATASE 91 U/L (45-117); BILIRUBIN,TOTAL 5.4 mg/dL (0.2-1.0); CREATININE 1.31 mg/dL (0.7-1.3); TOTAL PROTEIN 6.5 g/dL (6.4-8.2)
[2019-01-04 05:54] LABS: BASOPHILS # (AUTO) 0.03 x10^3/uL (0-0.1); BASOPHILS % (AUTO) 1 % (0-1); EOSINOPHILS # (AUTO) 0.05 x10^3/uL (0-0.4); EOSINOPHILS % (AUTO) 1 % (1-7); LYMPHOCYTES % (AUTO) 16 % (22-44); MD SCAN; MONOCYTES # (AUTO) 0.79 x10^3/uL (0.2-0.8); MONOCYTES % (AUTO) 14 % (2-9); NEUTROPHILS # (AUTO) 3.89 x10^3/uL (1.8-6.8); NEUTROPHILS % (AUTO) 69 % (42-75)
[2019-01-04 07:22] VITALS: BP 123/89
[2019-01-04] MEDS ORDERED: SODIUM CHLORIDE 0.9% 500 ML IV SCH (09:00)
[2019-01-04] MEDS: GABAPENTIN 100 MG CAPSULE PO SCH ×3 (09:00→21:47)
[2019-01-04] MEDS: ENOXAPARIN 40 MG/0.4 ML SQ SCH (09:53)
[2019-01-04] MEDS: POLYETHYLENE GLYCOL 17 GM PACKET PO SCH (09:53)
[2019-01-04 13:40] VITALS: BP 103/80
[2019-01-04] MEDS: morphine SULFATE 10 MG/ML, 1ML IVPush PRN ×2 (14:32→23:45)
[2019-01-04] MEDS ORDERED: WARFARIN MODERAT DOSE PROTOCOL XX SCH (16:27)
[2019-01-04] MEDS ORDERED: HEPARIN 5,000 UNITS/ML, 1ML IV PRN (16:30)
[2019-01-04] MEDS ORDERED: HEPARIN 25,000 UNITS/500ML PMX 500 ML IV PRN (16:30)
[2019-01-04] MEDS ORDERED: HEPARIN 5,000 UNITS/ML, 1ML IV ONE ×2 (16:30→18:00)
[2019-01-04 17:08] LABS: INTERNATIONAL NORMALIZED RATIO 2.68 (0.93-1.1); PROTHROMBIN TIME 27.1 Seconds (9.6-11.5)
[2019-01-04] MEDS ORDERED: WARFARIN 5 MG TABLET PO-COUM ONE (19:30)
[2019-01-04 20:55] VITALS: BP 110/79
[2019-01-04] MEDS: HEPARIN 25,000 UNITS/500ML PMX 500 ML IV PRN (22:35)
[2019-01-05 01:00] VITALS: BP 105/74
[2019-01-05] MEDS ORDERED: ENALAPRILAT 1.25 MG/ML, 2ML IV PRN (01:30)
[2019-01-05 03:24] VITALS: BP 102/74
[2019-01-05] MEDS: OXYcodone IR 5MG TABLET PO PRN (03:30)
[2019-01-05] MEDS: morphine SULFATE 10 MG/ML, 1ML IVPush PRN ×3 (04:57→21:48)
[2019-01-05] MEDS: PIPERACILLIN/TAZO/PMX 4.5GM 100 ML IV SCH ×4 (05:00→23:46)
[2019-01-05 05:06] LABS: INTERNATIONAL NORMALIZED RATIO 2.92 (0.93-1.1); PROTHROMBIN TIME 29.4 Seconds (9.6-11.5)
[2019-01-05 05:15] LABS: HDL CHOLESTEROL (DIRECT) 8 mg/dL (40-60)
[2019-01-05 05:23] VITALS: BP 110/80
[2019-01-05 05:29] LABS: CHOL/HDL RATIO 6.3; CHOLESTEROL, TOTAL < 50 mg/dL (140-239); HDL CHOL % 0 % (26-37); LDL CHOLESTEROL,CALCULATED 26 mg/dL (54-169); LDL/HDL RATIO 3.3 (0.5-3.0); TRIGLYCERIDES 82 mg/dL (50-200); VLDL CHOLESTEROL 16 mg/dL (0-25)
[2019-01-05] MEDS: HEPARIN 5,000 UNITS/ML, 1ML IV PRN ×3 (06:04→20:58)
[2019-01-05 07:06] VITALS: BP 109/78
[2019-01-05 07:34] LABS: ALANINE AMINOTRANSFERASE 102 U/L (12-78); ALBUMIN 2.5 g/dL (3.4-5.0); ANION GAP 21 mmol/L (5-15); CALCIUM 8.5 mg/dL (8.5-10.1); CHLORIDE 91 mmol/L (98-107); CREATININE 1.72 mg/dL (0.7-1.3)
[2019-01-05 07:36] LABS: ALKALINE PHOSPHATASE 106 U/L (45-117); BILIRUBIN,TOTAL 6.9 mg/dL (0.2-1.0); TOTAL PROTEIN 7.2 g/dL (6.4-8.2)
[2019-01-05 07:37] LABS: MEAN CORPUSCULAR HEMOGLOBIN 20.8 pg (27.5-34.5); MEAN CORPUSCULAR HGB CONC 30.2 g/dL (33.2-36.2); MEAN CORPUSCULAR VOLUME 69.1 fL (81-97); MEAN PLATELET VOLUME 10.2 fL (7.4-10.4); PLATELET COUNT 187 x10^3/uL (130-400); RED BLOOD COUNT 5.79 x10^6/uL (4.38-5.82); RED CELL DISTRIBUTION WIDTH 22.6 % (9.4-14.8)
[2019-01-05 07:38] LABS: MD YES
[2019-01-05 07:44] LABS: NRBC % (MANUAL) 9 % (0-1)
[2019-01-05 07:45] LABS: LYMPH#(MANUAL) 0.38 x10^3/uL (1-3.4); LYMPHS% (MANUAL) 7 % (22-44)
[2019-01-05 07:46] LABS: <PLATELET ESTIMATE> ADEQUATE; ANISOCYTOSIS 2+; MICROCYTOSIS 2+; MONOS#(MANUAL) 0.54 x10^3/uL (0.3-2.7); MONOS% (MANUAL) 10 % (2-9); POLYCHROMASIA 1+; SEG#(MANUAL) 4.48 x10^3/uL (1.8-6.8); SEGS% (MANUAL) 83 % (42-75)
[2019-01-05 07:47] LABS: HYPOCHROMIA 2+; LARGE PLATELETS 1+
[2019-01-05] MEDS: FUROSEMIDE 20 MG/2 ML IV SCH ×3 (08:00→17:00)
[2019-01-05] MEDS ORDERED: METOPROLOL SUCCINATE 25 MG TAB.ER.24H PO SCH (08:00)
[2019-01-05] MEDS ORDERED: PHARMACY MAY ADJ FOR RENAL FX MC PRN (08:00)
[2019-01-05] MEDS: GABAPENTIN 100 MG CAPSULE PO SCH ×3 (08:53→21:03)
[2019-01-05] MEDS: POLYETHYLENE GLYCOL 17 GM PACKET PO SCH (08:53)
[2019-01-05] MEDS: ASPIRIN 81 MG TABLET EC PO SCH (09:00)
[2019-01-05 12:34] VITALS: BP 123/79
[2019-01-05] MEDS: ATORVASTATIN 80 MG TABLET PO SCH (20:58)
[2019-01-05] MEDS: HEPARIN 25,000 UNITS/500ML PMX 500 ML IV PRN (20:59)
[2019-01-05 21:00] VITALS: BP 116/88
[2019-01-06 01:35] VITALS: BP 109/72
[2019-01-06] MEDS: morphine SULFATE 10 MG/ML, 1ML IVPush PRN ×4 (03:13→22:08)
[2019-01-06 03:46] LABS: INTERNATIONAL NORMALIZED RATIO 2.58 (0.93-1.1); PROTHROMBIN TIME 26.1 Seconds (9.6-11.5)
[2019-01-06 03:49] LABS: MEAN CORPUSCULAR HEMOGLOBIN 20.9 pg (27.5-34.5); MEAN CORPUSCULAR HGB CONC 30.4 g/dL (33.2-36.2); MEAN CORPUSCULAR VOLUME 68.9 fL (81-97); PLATELET COUNT 202 x10^3/uL (130-400); RED BLOOD COUNT 5.82 x10^6/uL (4.38-5.82); RED CELL DISTRIBUTION WIDTH 23.2 % (9.4-14.8)
[2019-01-06] MEDS: HEPARIN 5,000 UNITS/ML, 1ML IV PRN ×3 (04:03→18:22)
[2019-01-06 04:14] LABS: ALANINE AMINOTRANSFERASE 91 U/L (12-78); ALBUMIN 2.5 g/dL (3.4-5.0); ANION GAP 12 mmol/L (5-15); CALCIUM 8.4 mg/dL (8.5-10.1); CHLORIDE 91 mmol/L (98-107); CREATININE 1.43 mg/dL (0.7-1.3)
[2019-01-06 04:16] LABS: ALKALINE PHOSPHATASE 118 U/L (45-117); BILIRUBIN,TOTAL 6.6 mg/dL (0.2-1.0); TOTAL PROTEIN 7.3 g/dL (6.4-8.2)
[2019-01-06 04:32] LABS: MD MORPH REVIEW ONLY
[2019-01-06 04:33] LABS: ANISOCYTOSIS 1+; BASOPHILS # (AUTO) 0.04 x10^3/uL (0-0.1); BASOPHILS % (AUTO) 1 % (0-1); EOSINOPHILS # (AUTO) 0.11 x10^3/uL (0-0.4); EOSINOPHILS % (AUTO) 1 % (1-7); LYMPHOCYTES # (AUTO) 1.53 x10^3/uL (1-3.4); LYMPHOCYTES % (AUTO) 21 % (22-44); MONOCYTES # (AUTO) 1.07 x10^3/uL (0.2-0.8); MONOCYTES % (AUTO) 14 % (2-9); NEUTROPHILS # (AUTO) 4.69 x10^3/uL (1.8-6.8); NEUTROPHILS % (AUTO) 63 % (42-75); OVALOCYTES 1+
[2019-01-06 04:34] LABS: POLYCHROMASIA 1+; TARGET CELLS 1+
[2019-01-06 04:35] LABS: <PLATELET ESTIMATE> ADEQUATE; <PLT MORPHOLOGY> NORMAL PLT MORPH
[2019-01-06 05:08] VITALS: BP 109/78
[2019-01-06] MEDS: PIPERACILLIN/TAZO/PMX 4.5GM 100 ML IV SCH ×4 (05:20→22:54)
[2019-01-06] MEDS: METOPROLOL SUCCINATE 25 MG TAB.ER.24H PO SCH (05:21)
[2019-01-06] MEDS: ASPIRIN 81 MG TABLET EC PO SCH (05:21)
[2019-01-06] MEDS: FUROSEMIDE 20 MG/2 ML IV SCH ×2 (07:30→16:16)
[2019-01-06 08:00] VITALS: BP 95/67
[2019-01-06] MEDS: POLYETHYLENE GLYCOL 17 GM PACKET PO SCH (08:48)
[2019-01-06] MEDS: GABAPENTIN 100 MG CAPSULE PO SCH ×3 (08:48→22:09)
[2019-01-06 12:29] VITALS: BP 100/68
[2019-01-06] MEDS: HEPARIN 25,000 UNITS/500ML PMX 500 ML IV PRN (16:16)
[2019-01-06] MEDS ORDERED: WARFARIN 1 MG TABLET PO-COUM SCH (18:00)
[2019-01-06 21:44] VITALS: BP 103/74
[2019-01-06] MEDS: ATORVASTATIN 80 MG TABLET PO SCH (22:09)
[2019-01-07 01:53] VITALS: BP 112/76
[2019-01-07] MEDS: PIPERACILLIN/TAZO/PMX 4.5GM 100 ML IV SCH ×4 (05:14→23:51)
[2019-01-07] MEDS: morphine SULFATE 10 MG/ML, 1ML IVPush PRN ×3 (05:14→14:42)
[2019-01-07] MEDS: METOPROLOL SUCCINATE 25 MG TAB.ER.24H PO SCH (05:14)
[2019-01-07] MEDS: ASPIRIN 81 MG TABLET EC PO SCH (05:14)
[2019-01-07 06:45] VITALS: BP 112/68
[2019-01-07] MEDS: HEPARIN 25,000 UNITS/500ML PMX 500 ML IV PRN ×2 (07:17→21:45)
[2019-01-07 07:35] LABS: ALANINE AMINOTRANSFERASE 81 U/L (12-78); ALBUMIN 2.5 g/dL (3.4-5.0); ANION GAP 9 mmol/L (5-15); CALCIUM 8.3 mg/dL (8.5-10.1); CHLORIDE 89 mmol/L (98-107)
[2019-01-07 07:38] LABS: ALKALINE PHOSPHATASE 126 U/L (45-117); BILIRUBIN,TOTAL 6.3 mg/dL (0.2-1.0); CREATININE 1.36 mg/dL (0.7-1.3); TOTAL PROTEIN 7.6 g/dL (6.4-8.2)
[2019-01-07 07:40] LABS: INTERNATIONAL NORMALIZED RATIO 2.58 (0.93-1.1); PROTHROMBIN TIME 26.1 Seconds (9.6-11.5)
[2019-01-07 07:42] LABS: BASOPHILS # (AUTO) 0.04 x10^3/uL (0-0.1); BASOPHILS % (AUTO) 1 % (0-1); EOSINOPHILS # (AUTO) 0.06 x10^3/uL (0-0.4); EOSINOPHILS % (AUTO) 1 % (1-7); LYMPHOCYTES # (AUTO) 0.75 x10^3/uL (1-3.4); LYMPHOCYTES % (AUTO) 12 % (22-44); MD MORPH REVIEW ONLY; MEAN CORPUSCULAR HEMOGLOBIN 20.8 pg (27.5-34.5); MEAN CORPUSCULAR HGB CONC 30.5 g/dL (33.2-36.2); MEAN CORPUSCULAR VOLUME 68.1 fL (81-97); MEAN PLATELET VOLUME 10.8 fL (7.4-10.4); MONOCYTES # (AUTO) 0.63 x10^3/uL (0.2-0.8); MONOCYTES % (AUTO) 10 % (2-9); NEUTROPHILS # (AUTO) 4.65 x10^3/uL (1.8-6.8); NEUTROPHILS % (AUTO) 76 % (42-75); PLATELET COUNT 197 x10^3/uL (130-400); RED CELL DISTRIBUTION WIDTH 24.2 % (9.4-14.8)
[2019-01-07 07:43] LABS: <PLATELET ESTIMATE> ADEQUATE; <PLT MORPHOLOGY> NORMAL PLT MORPH; ANISOCYTOSIS 1+; MICROCYTOSIS 1+; POLYCHROMASIA 1+; TARGET CELLS 1+
[2019-01-07 07:45] LABS: HYPOCHROMIA 1+
[2019-01-07] MEDS: NEUTRA PHOS K 250 MG TABLET PO SCH ×3 (08:47→21:53)
[2019-01-07] MEDS: FUROSEMIDE 20 MG/2 ML IV SCH ×2 (08:48→16:50)
[2019-01-07] MEDS: GABAPENTIN 100 MG CAPSULE PO SCH ×3 (08:48→21:53)
[2019-01-07] MEDS: POLYETHYLENE GLYCOL 17 GM PACKET PO SCH (08:49)
[2019-01-07 13:46] VITALS: BP 102/70
[2019-01-07] MEDS: SPIRONOLACTONE 25 MG TABLET PO SCH (16:49)
[2019-01-07] MEDS: SENNA/DOCUSATE TABLET PO PRN (16:49)
[2019-01-07] MEDS ORDERED: WARFARIN 1 MG TABLET PO-COUM SCH ×2 (18:00)
[2019-01-07 19:20] VITALS: BP 105/67
[2019-01-07] MEDS: OXYcodone IR 5MG TABLET PO PRN (21:53)
[2019-01-07] MEDS: ATORVASTATIN 80 MG TABLET PO SCH (21:54)
[2019-01-08 00:47] VITALS: BP 101/72
[2019-01-08 05:12] LABS: INTERNATIONAL NORMALIZED RATIO 2.4 (0.93-1.1); PROTHROMBIN TIME 24.4 Seconds (9.6-11.5)
[2019-01-08 05:31] VITALS: BP 88/64
[2019-01-08] MEDS: PIPERACILLIN/TAZO/PMX 4.5GM 100 ML IV SCH ×3 (05:33→18:26)
[2019-01-08] MEDS: ASPIRIN 81 MG TABLET EC PO SCH (05:33)
[2019-01-08 07:09] LABS: ALBUMIN 2.1 g/dL (3.4-5.0); ANION GAP 11 mmol/L (5-15); CALCIUM 7.8 mg/dL (8.5-10.1); CHLORIDE 90 mmol/L (98-107)
[2019-01-08 07:12] LABS: ALANINE AMINOTRANSFERASE 65 U/L (12-78); ALKALINE PHOSPHATASE 116 U/L (45-117); BILIRUBIN,TOTAL 4.6 mg/dL (0.2-1.0); CREATININE 1.44 mg/dL (0.7-1.3); TOTAL PROTEIN 6.4 g/dL (6.4-8.2)
[2019-01-08 08:00] VITALS: BP 106/72
[2019-01-08] MEDS: SPIRONOLACTONE 25 MG TABLET PO SCH (10:19)
[2019-01-08] MEDS: POLYETHYLENE GLYCOL 17 GM PACKET PO SCH (10:19)
[2019-01-08] MEDS: SENNA/DOCUSATE TABLET PO PRN ×2 (10:19→21:55)
[2019-01-08] MEDS: GABAPENTIN 100 MG CAPSULE PO SCH ×3 (10:19→21:55)
[2019-01-08] MEDS: FUROSEMIDE 20 MG/2 ML IV SCH ×2 (10:20→18:02)
[2019-01-08] MEDS: OXYcodone IR 5MG TABLET PO PRN ×2 (12:50→18:02)
[2019-01-08 12:58] VITALS: BP 101/69
[2019-01-08] MEDS ORDERED: WARFARIN 1 MG TABLET PO-COUM SCH (18:00)
[2019-01-08 20:40] VITALS: BP 111/80
[2019-01-08] MEDS: ATORVASTATIN 80 MG TABLET PO SCH (21:56)
[2019-01-09] MEDS: PIPERACILLIN/TAZO/PMX 4.5GM 100 ML IV SCH ×4 (00:57→20:39)
[2019-01-09 01:01] VITALS: BP 108/76
[2019-01-09 05:59] VITALS: BP 99/69
[2019-01-09] MEDS: ASPIRIN 81 MG TABLET EC PO SCH (06:09)
[2019-01-09] MEDS: METOPROLOL SUCCINATE 25 MG TAB.ER.24H PO SCH (06:09)
[2019-01-09 06:30] LABS: MEAN CORPUSCULAR HEMOGLOBIN 21.2 pg (27.5-34.5); MEAN CORPUSCULAR HGB CONC 30.9 g/dL (33.2-36.2); MEAN CORPUSCULAR VOLUME 68.6 fL (81-97); MEAN PLATELET VOLUME 11.1 fL (7.4-10.4); PLATELET COUNT 158 x10^3/uL (130-400); RED BLOOD COUNT 5.48 x10^6/uL (4.38-5.82)
[2019-01-09 06:35] LABS: INTERNATIONAL NORMALIZED RATIO 2.17 (0.93-1.1); PROTHROMBIN TIME 22.1 Seconds (9.6-11.5)
[2019-01-09 06:37] LABS: ALANINE AMINOTRANSFERASE 62 U/L (12-78); ALBUMIN 2.3 g/dL (3.4-5.0); ANION GAP 10 mmol/L (5-15); CALCIUM 7.7 mg/dL (8.5-10.1); CHLORIDE 90 mmol/L (98-107); CREATININE 1.47 mg/dL (0.7-1.3)
[2019-01-09 06:40] LABS: ALKALINE PHOSPHATASE 134 U/L (45-117); BILIRUBIN,TOTAL 4.3 mg/dL (0.2-1.0); TOTAL PROTEIN 6.9 g/dL (6.4-8.2)
[2019-01-09 07:12] LABS: MD YES
[2019-01-09 07:20] LABS: BAND#(MANUAL) 0.18 x10^3/uL; BANDS%(MANUAL) 3 % (0-7); EOS#(MANUAL) 0.06 x10^3/uL (0.0-0.4); EOS% (MANUAL) 1 % (1-7); LYMPH#(MANUAL) 0.67 x10^3/uL (1-3.4); LYMPHS% (MANUAL) 11 % (22-44); MONOS#(MANUAL) 0.49 x10^3/uL (0.3-2.7); MONOS% (MANUAL) 8 % (2-9); NRBC % (MANUAL) 18 % (0-1); SEGS% (MANUAL) 77 % (42-75)
[2019-01-09 07:21] LABS: <PLATELET ESTIMATE> ADEQUATE; ANISOCYTOSIS 1+; HYPOCHROMIA 1+; LARGE PLATELETS 1+; MICROCYTOSIS 1+; POLYCHROMASIA 1+; TARGET CELLS 1+
[2019-01-09] MEDS ORDERED: POTASSIUM CHLORIDE 20 MEQ TAB.ER.PRT PO ONE ×3 (07:30→15:30)
[2019-01-09 07:48] VITALS: BP 98/67
[2019-01-09] MEDS: POLYETHYLENE GLYCOL 17 GM PACKET PO SCH (08:24)
[2019-01-09] MEDS: GABAPENTIN 100 MG CAPSULE PO SCH ×3 (08:25→20:39)
[2019-01-09] MEDS: FUROSEMIDE 20 MG/2 ML IV SCH ×2 (08:25→17:49)
[2019-01-09] MEDS: SPIRONOLACTONE 25 MG TABLET PO SCH (08:25)
[2019-01-09] MEDS: OXYcodone IR 5MG TABLET PO PRN ×2 (08:32→20:39)
[2019-01-09] MEDS: SENNA/DOCUSATE TABLET PO PRN (08:32)
[2019-01-09] MEDS ORDERED: POTASSIUM CHLORIDE 10% 40 MEQ/30 ML UDC PO ONE (11:30)
[2019-01-09 12:43] VITALS: BP 109/78
[2019-01-09 13:21] LABS: OCCULT BLOOD NEGATIVE (NEGATIVE)
[2019-01-09 13:26] LABS: C-REACTIVE PROTEIN, QUANT 4.3 mg/dL (0.02-0.49)
[2019-01-09 13:43] LABS: HCT (SEDRATE) 38.8 % (39.2-51.8)
[2019-01-09 13:54] VITALS: BP 124/76
[2019-01-09] MEDS ORDERED: WARFARIN 2 MG TABLET PO-COUM SCH (18:00)
[2019-01-09 19:17] LABS: TROPONIN I 0.169 ng/mL (0.000-0.045)
[2019-01-09 20:26] VITALS: BP 98/71
[2019-01-09] MEDS: ATORVASTATIN 80 MG TABLET PO SCH (20:39)
[2019-01-10] MEDS: PIPERACILLIN/TAZO/PMX 4.5GM 100 ML IV SCH ×2 (02:32→09:05)
[2019-01-10 02:36] VITALS: BP 95/64
[2019-01-10 03:09] LABS: INTERNATIONAL NORMALIZED RATIO 2.88 (0.93-1.1)
[2019-01-10 03:10] LABS: ANION GAP 8 mmol/L (5-15); CALCIUM 7.8 mg/dL (8.5-10.1); CHLORIDE 91 mmol/L (98-107); CREATININE 1.44 mg/dL (0.7-1.3)
[2019-01-10 05:59] VITALS: BP 87/64
[2019-01-10] MEDS: METOPROLOL SUCCINATE 25 MG TAB.ER.24H PO SCH (06:00)
[2019-01-10] MEDS: ASPIRIN 81 MG TABLET EC PO SCH (06:01)
[2019-01-10 07:32] VITALS: BP 96/78
[2019-01-10] MEDS: GABAPENTIN 100 MG CAPSULE PO SCH ×3 (08:52→20:23)
[2019-01-10] MEDS: POLYETHYLENE GLYCOL 17 GM PACKET PO SCH (08:53)
[2019-01-10] MEDS: FUROSEMIDE 20 MG/2 ML IV SCH ×2 (08:53→16:55)
[2019-01-10] MEDS: OXYcodone IR 5MG TABLET PO PRN ×3 (09:05→22:11)
[2019-01-10 11:04] VITALS: BP 101/53
[2019-01-10] MEDS: SPIRONOLACTONE 25 MG TABLET PO SCH (11:07)
[2019-01-10 13:00] VITALS: BP 105/79
[2019-01-10] MEDS ORDERED: WARFARIN 1 MG TABLET PO-COUM ONE (18:00)
[2019-01-10 20:23] VITALS: BP 97/69
[2019-01-10] MEDS: ATORVASTATIN 80 MG TABLET PO SCH (20:23)
[2019-01-11 03:18] VITALS: BP 100/69
[2019-01-11 05:15] VITALS: BP 96/65
[2019-01-11] MEDS: ASPIRIN 81 MG TABLET EC PO SCH (05:15)
[2019-01-11] MEDS: METOPROLOL SUCCINATE 25 MG TAB.ER.24H PO SCH (05:16)
[2019-01-11 05:44] LABS: INTERNATIONAL NORMALIZED RATIO 4.14 (0.93-1.1); PROTHROMBIN TIME 41.2 Seconds (9.6-11.5)
[2019-01-11 05:50] LABS: CHLORIDE 89 mmol/L (98-107)
[2019-01-11 06:02] LABS: ALANINE AMINOTRANSFERASE 48 U/L (12-78); ALKALINE PHOSPHATASE 128 U/L (45-117); ANION GAP 10 mmol/L (5-15); BILIRUBIN,TOTAL 3.9 mg/dL (0.2-1.0); CALCIUM 7.5 mg/dL (8.5-10.1); CREATININE 1.38 mg/dL (0.7-1.3); TOTAL PROTEIN 6.6 g/dL (6.4-8.2)
[2019-01-11 06:04] LABS: MD YES; MEAN CORPUSCULAR HEMOGLOBIN 21.1 pg (27.5-34.5); MEAN CORPUSCULAR HGB CONC 30.9 g/dL (33.2-36.2); MEAN CORPUSCULAR VOLUME 68.3 fL (81-97); MEAN PLATELET VOLUME 9.3 fL (7.4-10.4); PLATELET COUNT 124 x10^3/uL (130-400); RED BLOOD COUNT 5.14 x10^6/uL (4.38-5.82)
[2019-01-11 06:10] LABS: ANISOCYTOSIS 1+; BAND#(MANUAL) 0.06 x10^3/uL; BANDS%(MANUAL) 1 % (0-7); EOS#(MANUAL) 0.06 x10^3/uL (0.0-0.4); EOS% (MANUAL) 1 % (1-7); HYPOCHROMIA 1+; LYMPH#(MANUAL) 0.56 x10^3/uL (1-3.4); LYMPHS% (MANUAL) 9 % (22-44); MICROCYTOSIS 1+; MONOS#(MANUAL) 0.31 x10^3/uL (0.3-2.7); MONOS% (MANUAL) 5 % (2-9); NRBC % (MANUAL) 12 % (0-1); POLYCHROMASIA 1+; SEG#(MANUAL) 5.21 x10^3/uL (1.8-6.8); SEGS% (MANUAL) 84 % (42-75); TARGET CELLS 1+
[2019-01-11 06:11] LABS: <PLATELET ESTIMATE> DECREASED
[2019-01-11 06:12] LABS: LARGE PLATELETS 1+
[2019-01-11] MEDS: POLYETHYLENE GLYCOL 17 GM PACKET PO SCH (08:16)
[2019-01-11] MEDS: GABAPENTIN 100 MG CAPSULE PO SCH ×3 (08:17→20:18)
[2019-01-11] MEDS: SPIRONOLACTONE 25 MG TABLET PO SCH (08:17)
[2019-01-11] MEDS: FUROSEMIDE 20 MG/2 ML IV SCH ×2 (08:17→16:14)
[2019-01-11 08:50] VITALS: BP 113/81
[2019-01-11 14:40] VITALS: BP 99/74
[2019-01-11] MEDS: ATORVASTATIN 80 MG TABLET PO SCH (20:18)
[2019-01-11 21:04] VITALS: BP 94/68
[2019-01-12 01:03] VITALS: BP 96/66
[2019-01-12] MEDS: ASPIRIN 81 MG TABLET EC PO SCH (05:25)
[2019-01-12] MEDS: METOPROLOL SUCCINATE 25 MG TAB.ER.24H PO SCH (05:25)
[2019-01-12 05:26] VITALS: BP 104/68
[2019-01-12 06:19] LABS: INTERNATIONAL NORMALIZED RATIO 3.33 (0.93-1.1); PROTHROMBIN TIME 33.4 Seconds (9.6-11.5)
[2019-01-12 07:29] VITALS: BP 91/55
[2019-01-12 07:57] LABS: ANION GAP 8 mmol/L (5-15); CALCIUM 7.9 mg/dL (8.5-10.1); CHLORIDE 89 mmol/L (98-107); CREATININE 1.19 mg/dL (0.7-1.3)
[2019-01-12] MEDS ORDERED: FUROSEMIDE 20 MG TABLET PO SCH (08:00)
[2019-01-12 08:08] VITALS: BP 97/66
[2019-01-12] MEDS: POLYETHYLENE GLYCOL 17 GM PACKET PO SCH (08:25)
[2019-01-12] MEDS: GABAPENTIN 100 MG CAPSULE PO SCH (08:28)
[2019-01-12] MEDS: SPIRONOLACTONE 25 MG TABLET PO SCH (08:28)
[2019-01-12] MEDS ORDERED: GABA-826 PO (08:53)
[2019-01-12] MEDS ORDERED: ASPI81TA45 PO (08:53)
[2019-01-12] MEDS ORDERED: FURO20TA3 PO (08:53)
[2019-01-12] MEDS ORDERED: SPIR25TA PO (08:53)
[2019-01-12] MEDS ORDERED: WARF2TAB PO (08:53)
[2019-01-12] MEDS ORDERED: ATOR-2 PO (08:53)
[2019-01-12] MEDS ORDERED: POTA10CA PO (09:21)
[2019-01-12 12:50] VITALS: BP 101/76
[2019-01-12] MEDS ORDERED: WARFARIN 1 MG TABLET PO-COUM ONE (18:00)
== END 2019-01-12 17:15 | DRG 974 ==
LOC: ED 17:21 → EDIP 18:23 → ICU 22:12 → 3NE 01-01 16:23 → 4WST 01-05 07:52
PROVIDERS: ADMIT Internal Medicine; ATTEND Internal Medicine
PROC: 02HV33Z Insertion of Infusion Device into Superior Vena Cava, Percutaneous Approach (ICD-10-PCS; principal; 2018-12-30)
PROC: B548ZZA Ultrasonography of Superior Vena Cava, Guidance (ICD-10-PCS; 2018-12-30)
DX: A41.9 Sepsis, unspecified organism (principal); J18.0 Bronchopneumonia, unspecified organism; B20 Human immunodeficiency virus [HIV] disease; J96.01 Acute respiratory failure with hypoxia; I50.43 Acute on chronic combined systolic (congestive) and diastolic (congestive) heart failure; I21.A1 Myocardial infarction type 2; R65.21 Severe sepsis with septic shock; E87.1 Hypo-osmolality and hyponatremia; E46 Unspecified protein-calorie malnutrition; I47.2 Ventricular tachycardia; J98.11 Atelectasis; N17.9 Acute kidney failure, unspecified; G45.9 Transient cerebral ischemic attack, unspecified; D50.9 Iron deficiency anemia, unspecified; Z68.28 Body mass index [BMI] 28.0-28.9, adult; E78.5 Hyperlipidemia, unspecified; E83.39 Other disorders of phosphorus metabolism; E83.42 Hypomagnesemia; E86.1 Hypovolemia; E87.6 Hypokalemia; F12.10 Cannabis abuse, uncomplicated; F15.10 Other stimulant abuse, uncomplicated; F17.200 Nicotine dependence, unspecified, uncomplicated; F41.9 Anxiety disorder, unspecified; I08.1 Rheumatic disorders of both mitral and tricuspid valves; I11.0 Hypertensive heart disease with heart failure; I25.10 Atherosclerotic heart disease of native coronary artery without angina pectoris; I25.5 Ischemic cardiomyopathy; I27.20 Pulmonary hypertension, unspecified; I44.0 Atrioventricular block, first degree; Z96.661 Presence of right artificial ankle joint; I44.4 Left anterior fascicular block; J32.0 Chronic maxillary sinusitis; K40.90 Unilateral inguinal hernia, without obstruction or gangrene, not specified as recurrent; K80.20 Calculus of gallbladder without cholecystitis without obstruction; Z51.5 Encounter for palliative care; Z79.899 Other long term (current) drug therapy; I25.2 Old myocardial infarction; Z91.14 Patient's other noncompliance with medication regimen; Z91.19 Patient's noncompliance with other medical treatment and regimen; Z95.5 Presence of coronary angioplasty implant and graft
CPT/HCPCS: 36415; 36573; 36600; 70450; 70551; 71045; 71260; 74176; 76700; 80048; 80053; 80061; 80202; 80307; 82040; 82247; 82248; 82272; 82803; 82955; 82962; 83540; 83550; 83605; 83690; 83735; 83880; 84100; 84145; 84484; 85025; 85041; 85520; 85610; 85651; 86140; 86361; 86738; 87040; 87081; 87449; 87536; 93005; 93306; 93880; 96365; 96366; 96367; 96375; 99292; G0378; J0456; J0696; J1644; J1650; J2543; J3010; J3370; J7070; P9045; Q9967; C1751; J1940; J2060; J2270; J3475; J7030; J7040; J7050

== ENCOUNTER 2019-03-16 17:40 | Inpatient (IN) | payer MEDICARE, MEDICAID ==
[~2019-03-16] VITALS: Ht 172.7 cm; Wt 81.0 kg
[~2019-03-16 17:40] MED LIST changes: +ATOR-2 PO; +DIGO250T PO; +DRON5CAP15 PO; -ETOMIDATE 20 MG/10 ML ONE; +FERR-51 PO; +FURO20TA3 PO; +GABA-826 PO; +LEVO50TA PO; +LEVO750T26 PO; -NITR0.4T SL; +NITR0.4T41 SL; -ROCURONIUM 10MG/ML,5ML ONE; +SPIR25TA PO; +WARF2TAB PO
--- NOTE | 2019-03-16 18:00 | NUR ---
ANABELL MCGEE AT BEDSIDE.
[2019-03-16] MEDS ORDERED: ONDANSETRON 2MG/ML, 2ML IVPush ONE (18:30)
[2019-03-16] MEDS ORDERED: SODIUM CHLORIDE FLUSH 10ML SYR IVF ONE (18:30)
[2019-03-16] MEDS ORDERED: SODIUM CHLORIDE 0.9% 1,000ML IVBOLUS ONE (18:30)
[2019-03-16] MEDS ORDERED: ONDANSETRON 2MG/ML, 2ML ONE (18:34)
--- NOTE | 2019-03-16 18:49 | NUR ---
PT GIVEN NAUSEA MEDS AND NS FLUID BOLUS RUNNING. WHEN ASKED IF HE WANTS US TO PERFORM ALL LIFE SAVING MEASURES, PT STATES, "NO I DON'T".
--- NOTE | 2019-03-16 18:51 | NUR ---
REPORT FROM KELLIE SHEN. PT RESTING WITH NO NEEDS AT THIS TIME. CALL LIGHT IN REACH
[2019-03-16 18:55] LABS: ALANINE AMINOTRANSFERASE 14 U/L (12-78); ALBUMIN 1.2 g/dL (3.4-5.0); ANION GAP 8 mmol/L (5-15); CALCIUM 8.1 mg/dL (8.5-10.1); CHLORIDE 98 mmol/L (98-107); CREATININE 0.98 mg/dL (0.7-1.3)
[2019-03-16 18:59] LABS: ALKALINE PHOSPHATASE 110 U/L (45-117); BILIRUBIN,TOTAL 4.7 mg/dL (0.2-1.0); TOTAL PROTEIN 7.1 g/dL (6.4-8.2); TROPONIN I 0.216 ng/mL (0.000-0.045)
[2019-03-16] MEDS ORDERED: CEFTRIAXONE PMX 1GM/50ML 50 ML IVPB ONE (19:00)
[2019-03-16] MEDS ORDERED: VANCOMYCIN PER PHARMACY MC ONE (19:00)
[2019-03-16 19:04] LABS: MD YES; MEAN CORPUSCULAR HEMOGLOBIN 25.9 pg (27.5-34.5); MEAN CORPUSCULAR HGB CONC 30.8 g/dL (33.2-36.2); MEAN PLATELET VOLUME 11.2 fL (7.4-10.4); RED BLOOD COUNT 4.44 x10^6/uL (4.38-5.82); RED CELL DISTRIBUTION WIDTH 28.4 % (9.4-14.8)
[2019-03-16 19:08] LABS: BAND#(MANUAL) 0.33 x10^3/uL; BANDS%(MANUAL) 5 % (0-7); LYMPH#(MANUAL) 0.33 x10^3/uL (1-3.4); LYMPHS% (MANUAL) 5 % (22-44); MONOS#(MANUAL) 0.13 x10^3/uL (0.3-2.7); MONOS% (MANUAL) 2 % (2-9); NRBC % (MANUAL) 1 % (0-1); SEG#(MANUAL) 5.72 x10^3/uL (1.8-6.8); SEGS% (MANUAL) 88 % (42-75)
[2019-03-16 19:09] LABS: ANISOCYTOSIS 2+; HYPOCHROMIA 1+; OVALOCYTES 1+; POLYCHROMASIA 1+; SCHISTOCYTES 1+; TARGET CELLS 1+
[2019-03-16 19:10] LABS: <PLATELET ESTIMATE> DECREASED; LARGE PLATELETS 1+; PMNS WITH VACUOLES 1+; TEAR DROPS 1+; TOXIC GRAN 1+
[2019-03-16 19:12] LABS: PLATELET COUNT 49 x10^3/uL (130-400)
[2019-03-16] MEDS ORDERED: CEFTRIAXONE PMX 1GM/50ML 50 ML ONE (19:15)
--- NOTE | 2019-03-16 19:22 | NUR ---
ABX RUNNIG. BP IMPROVED. VSS. CALL LIGHT IN REACH
[2019-03-16] MEDS ORDERED: PIPERACILLIN/TAZO/PMX 3.375GM 50 ML IVPB ONE (19:30)
[2019-03-16] MEDS ORDERED: PIPERACILLIN/TAZO/PMX 3.375GM 50 ML ONE (19:52)
--- NOTE | 2019-03-16 20:06 | NUR ---
2ND ABX RUNNING. PT PLACED ON 2 L O2 TO MAINTAIN SATS. BUSINESS CONTINUITY COORDINATOR REPLACED ON PT. PT REMOVED ELECTRODES. VSS. CALL LIGHT IN REACH
[2019-03-16] MEDS ORDERED: VANCOMYCIN 1,500 MG in SODIUM CHLORIDE 0.9% 250 ML IV ONE (20:30)
--- NOTE | 2019-03-16 21:01 | NUR ---
2ND PIV ATTEMPTED WITH NO SUCCESS. WILL HAVE ANOTHER RN ATTEMPT TO PLACE
--- NOTE | 2019-03-16 22:10 | NUR ---
RECEIVED BEDSIDE REPORT AND CARE FROM YAHIR SHEN. PT RESTING IN POSITION OF COMFORT. AWAITING ROOM ASSIGNMENT IN CCU. IV ANTIBIOTICS INFUSING BY YAHIR SHEN PER ORDER ON IV PUMP, BLOOD CULTURES WERE DRAWN PRIOR TO ADMIN. PT ORIENTED TO SELF, UNABLE TO ANSWER ANY OTHER QUESTIONS. GILDA PAD IN PLACE, CLEAN AND DRY. PT DENIES URGE TO URINATE, DISCUSSED UA SAMPLE IS NEEDED. DISCUSSED UA WITH DR. LINDA, AWARE, NO NEW ORDERS AT THIS TIME. BP CURRENTLY STABLE, SR ON MONITOR, RATE 90-100. PULSE OX 100% 2L NC O2. DISCUSSED SEPSIS PROTOCOL WITH DR. LINDA, NO ADDITIONAL FLUIDS AT THIS TIME DUE TO PT HX CHF. CALL LIGHT IN REACH. FALL PRECAUTIONS IN PLACE, SIDE RAILS UPX2. AWAITING EVALUATION BY ADMIN MD DR. BROOKE.
--- NOTE | 2019-03-16 22:12 | NUR ---
UNABLE TO ASSESS PAIN, PT RESTING IN POSITION OF COMFORT. WHEN ASKING PT IF HAVING ANY PAIN, PT SMILES AND SAYS NO. RE-POSITIONED FOR COMFORT, BLANKETS IN PLACE.
--- NOTE | 2019-03-16 22:24 | NUR ---
DR. BROOKE AND DR. LINDA DISCUSSING POC, AWAITING PT EVAL AND ROOM ON FLOOR.
[2019-03-16] MEDS ORDERED: VANCOMYCIN PER PHARMACY MC PRN (22:30)
--- NOTE | 2019-03-16 22:33 | NUR ---
ADMIT MD DR. BROOKE AT BEDSIDE FOR EVALUATION. CONTINUE AWAITING ROOM ASSIGNMENT ON FLOOR.
--- NOTE | 2019-03-16 22:45 | NUR ---
ISOLATION PRECAUTIONS INITIATED PER DR. BROOKE AT THIS TIME.
[2019-03-16] MEDS ORDERED: ONDANSETRON 2MG/ML, 2ML IVPush PRN (23:00)
[2019-03-16] MEDS ORDERED: POLYETHYLENE GLYCOL 17 GM PACKET PO PRN (23:00)
[2019-03-16] MEDS ORDERED: hydrALAzine 20 MG/ML, 1ML IVPush PRN (23:00)
[2019-03-16] MEDS ORDERED: PROMETHAZINE 25 MG/ML, 1ML IM PRN (23:00)
[2019-03-16] MEDS ORDERED: ONDANSETRON ODT 4 MG PO PRN (23:00)
[2019-03-16] MEDS ORDERED: BISACODYL 10 MG SUPP PR PRN (23:00)
[2019-03-16] MEDS ORDERED: DOCUSATE 100 MG CAPSULE PO PRN (23:00)
--- NOTE | 2019-03-16 23:00 | NUR ---
DISCUSSED PT VITALS/BP WITH DR. BROOKE AND MED TELE LEVEL OF CARE ORDER (CHANGED FROM CCU ORDER PLACED BY ED ERP DR. LINDA), DR. BROOKE AWARE OF BP, NO NEW ORDERS RECEIVED, ADMIT ORDER "TO REMAIN MEDTELE, WILL CONTINUE TO MONITOR HIM CLOSELY, HE MAY GO TO THE MED TELE FLOOR NOT CCU."
[2019-03-16 23:15] LABS: HEMOGLOBIN A1C 5.1 % (4.2-6.3)
[2019-03-16 23:16] LABS: FREE T4 (FREE THYROXINE) 0.32 ng/dL (0.76-1.46); THYROID STIMULATING HORMONE 3.93 mIU/L (0.358-3.740)
--- NOTE | 2019-03-16 23:17 | NUR ---
PHONE/VERBAL REPORT TO DION SHEN FOR ROOM 423.
[2019-03-16] MEDS: ATORVASTATIN 80 MG TABLET PO SCH (23:30)
[2019-03-17 00:08] VITALS: BP 89/53
[2019-03-17] MEDS ORDERED: PHARMACOKINETIC MONITORING MC PRN (00:30)
[2019-03-17] MEDS: PIPERACILLIN/TAZO/PMX 3.375GM 50 ML IV SCH ×3 (02:42→14:37)
[2019-03-17 05:56] LABS: INTERNATIONAL NORMALIZED RATIO 1.59 (0.93-1.1); PROTHROMBIN TIME 16.4 Seconds (9.6-11.5)
[2019-03-17 05:57] LABS: ALANINE AMINOTRANSFERASE 17 U/L (12-78); ALBUMIN 1.1 g/dL (3.4-5.0); ANION GAP 5 mmol/L (5-15); CHLORIDE 99 mmol/L (98-107); CREATININE 0.99 mg/dL (0.7-1.3)
[2019-03-17 05:59] LABS: ALKALINE PHOSPHATASE 102 U/L (45-117); BILIRUBIN,TOTAL 4.8 mg/dL (0.2-1.0); HDL CHOLESTEROL (DIRECT) 8 mg/dL (40-60); TOTAL PROTEIN 7.3 g/dL (6.4-8.2); TRIGLYCERIDES 115 mg/dL (50-200); VLDL CHOLESTEROL 23 mg/dL (0-25)
[2019-03-17 06:00] LABS: CHOL/HDL RATIO 6.3; CHOLESTEROL, TOTAL < 50 mg/dL (140-239); HDL CHOL % 0 % (26-37); LDL CHOLESTEROL,CALCULATED 19 mg/dL (54-169); LDL/HDL RATIO 2.4 (0.5-3.0)
[2019-03-17 06:27] LABS: MEAN CORPUSCULAR HEMOGLOBIN 23.7 pg (27.5-34.5); MEAN CORPUSCULAR HGB CONC 30.3 g/dL (33.2-36.2); MEAN CORPUSCULAR VOLUME 78.1 fL (81-97); RED BLOOD COUNT 4.69 x10^6/uL (4.38-5.82); RED CELL DISTRIBUTION WIDTH 28.1 % (9.4-14.8)
[2019-03-17 06:49] LABS: MEAN PLATELET VOLUME 9.5 fL (7.4-10.4)
[2019-03-17 06:50] LABS: MD YES
[2019-03-17 06:51] LABS: PLATELET COUNT 43 x10^3/uL (130-400)
[2019-03-17 06:52] LABS: BAND#(MANUAL) 0.07 x10^3/uL; BANDS%(MANUAL) 1 % (0-7); EOS#(MANUAL) 0.07 x10^3/uL (0.0-0.4); EOS% (MANUAL) 1 % (1-7); LYMPH#(MANUAL) 0.21 x10^3/uL (1-3.4); LYMPHS% (MANUAL) 3 % (22-44); MONOS#(MANUAL) 0.28 x10^3/uL (0.3-2.7); MONOS% (MANUAL) 4 % (2-9); NRBC % (MANUAL) 1 % (0-1); SEG#(MANUAL) 6.28 x10^3/uL (1.8-6.8); SEGS% (MANUAL) 91 % (42-75)
[2019-03-17 06:53] LABS: ANISOCYTOSIS 2+; HYPOCHROMIA 1+; OVALOCYTES 1+; TARGET CELLS 1+
[2019-03-17 06:54] LABS: POLYCHROMASIA 1+
[2019-03-17 06:55] LABS: SCHISTOCYTES 1+
[2019-03-17 06:56] LABS: <PLATELET ESTIMATE> DECREASED; <PLT MORPHOLOGY> NORMAL PLT MORPH; PMNS WITH VACUOLES 1+; TOXIC GRAN 1+
[2019-03-17 09:15] VITALS: BP 98/51
[2019-03-17] MEDS: ASPIRIN 81 MG TABLET EC PO SCH (09:21)
[2019-03-17 12:45] VITALS: BP 84/61
[2019-03-17] MEDS ORDERED: VANCOMYCIN 1,500 MG in SODIUM CHLORIDE 0.9% 250 ML IV SCH (15:00)
[2019-03-17] MEDS: MEROPENEM 1 GM in SODIUM CHLORIDE 0.9% 100 ML IV SCH (17:02)
[2019-03-17] MEDS ORDERED: WARFARIN 3 MG TABLET PO-COUM SCH (18:00)
[2019-03-17 19:04] VITALS: BP 101/70
[2019-03-17] MEDS: ATORVASTATIN 80 MG TABLET PO SCH (21:00)
[2019-03-18 00:59] LABS: CULTURE INDICATED? YES; MICROSCOPIC INDICATED
[2019-03-18] MEDS: MEROPENEM 1 GM in SODIUM CHLORIDE 0.9% 100 ML IV SCH ×3 (01:06→17:13)
[2019-03-18 01:51] VITALS: BP 93/67
[2019-03-18] MEDS: ASPIRIN 81 MG TABLET EC PO SCH (05:37)
[2019-03-18 07:25] VITALS: BP 93/60
[2019-03-18] MEDS: DAPSONE 100 MG TABLET PO SCH (09:46)
[2019-03-18 12:46] VITALS: BP 96/61
[2019-03-18] MEDS: ATORVASTATIN 80 MG TABLET PO SCH (21:00)
[2019-03-19] MEDS: MEROPENEM 1 GM in SODIUM CHLORIDE 0.9% 100 ML IV SCH (00:46)
[2019-03-19] MEDS: morphine SULFATE 10 MG/ML, 1ML IVPush PRN (04:18)
[2019-03-19] MEDS: ASPIRIN 81 MG TABLET EC PO SCH (06:00)
[2019-03-19 07:28] VITALS: BP 89/60
[2019-03-19] MEDS: [UNRECOGNIZED DRUG - REMARK] MC SCH ×3 (07:30→23:30)
[2019-03-19] MEDS: DAPSONE 100 MG TABLET PO SCH (09:00)
[2019-03-19 10:33] LABS: ALANINE AMINOTRANSFERASE 16 U/L (12-78); ANION GAP 7 mmol/L (5-15); CALCIUM 7.4 mg/dL (8.5-10.1); CHLORIDE 98 mmol/L (98-107); CREATININE 0.69 mg/dL (0.7-1.3)
[2019-03-19 10:35] LABS: ALKALINE PHOSPHATASE 133 U/L (45-117); BILIRUBIN,TOTAL 3.4 mg/dL (0.2-1.0); MEAN CORPUSCULAR HEMOGLOBIN 24.8 pg (27.5-34.5); MEAN CORPUSCULAR HGB CONC 30.6 g/dL (33.2-36.2); MEAN CORPUSCULAR VOLUME 80.9 fL (81-97); MEAN PLATELET VOLUME 10.2 fL (7.4-10.4); RED BLOOD COUNT 4.24 x10^6/uL (4.38-5.82); RED CELL DISTRIBUTION WIDTH 26.7 % (9.4-14.8)
[2019-03-19 11:47] LABS: PLATELET COUNT 44 x10^3/uL (130-400)
[2019-03-19 11:50] LABS: MD YES
[2019-03-19 11:51] LABS: <PLATELET ESTIMATE> DECREASED; <PLT MORPHOLOGY> NORMAL PLT MORPH; ANISOCYTOSIS 2+; BANDS%(MANUAL) 3 % (0-7); EOS#(MANUAL) 0.13 x10^3/uL (0.0-0.4); EOS% (MANUAL) 1 % (1-7); HYPOCHROMIA 1+; PMNS WITH VACUOLES 1+; POLYCHROMASIA 1+; SEG#(MANUAL) 12.86 x10^3/uL (1.8-6.8); SEGS% (MANUAL) 96 % (42-75); TARGET CELLS 1+; TOXIC GRAN 1+
[2019-03-19 13:15] VITALS: BP 89/58
[2019-03-19] MEDS: MEROPENEM 2 GM in SODIUM CHLORIDE 0.9% 100 ML IV SCH (15:29)
[2019-03-19] MEDS ORDERED: MEROPENEM 1 GM in SODIUM CHLORIDE 0.9% 100 ML IV SCH (15:30)
[2019-03-19 19:40] VITALS: BP 81/52
[2019-03-19] MEDS: ATORVASTATIN 80 MG TABLET PO SCH (21:00)
[2019-03-19] MEDS: OXYcodone IR 5MG TABLET PO PRN (21:05)
[2019-03-19] MEDS ORDERED: SODIUM CHLORIDE 0.9%, 250ML IVBOLUS ONE (22:30)
[2019-03-20] MEDS: MEROPENEM 2 GM in SODIUM CHLORIDE 0.9% 100 ML IV SCH ×4 (00:17→23:16)
[2019-03-20] MEDS: ASPIRIN 81 MG TABLET EC PO SCH (05:48)
[2019-03-20] MEDS: [UNRECOGNIZED DRUG - REMARK] MC SCH ×3 (07:30→22:12)
[2019-03-20] MEDS: DAPSONE 100 MG TABLET PO SCH (09:00)
[2019-03-20] MEDS ORDERED: MORPHINE SULFATE 4 MG/ML, 1ML ONE (11:12)
[2019-03-20] MEDS: morphine SULFATE 10 MG/ML, 1ML IVPush PRN (11:15)
[2019-03-20 14:00] VITALS: BP 93/61
[2019-03-20 16:28] VITALS: BP 89/59
[2019-03-20 16:52] VITALS: BP 93/60
[2019-03-20 17:35] VITALS: BP 93/62
[2019-03-20 19:19] VITALS: BP 99/67
[2019-03-20] MEDS: ATORVASTATIN 80 MG TABLET PO SCH (20:46)
[2019-03-20] MEDS: OXYcodone IR 5MG TABLET PO PRN (23:22)
[2019-03-21 01:11] VITALS: BP 95/57
[2019-03-21] MEDS: ASPIRIN 81 MG TABLET EC PO SCH (05:30)
[2019-03-21] MEDS: [UNRECOGNIZED DRUG - REMARK] MC SCH ×2 (07:30→15:30)
[2019-03-21] MEDS: MEROPENEM 2 GM in SODIUM CHLORIDE 0.9% 100 ML IV SCH (08:43)
[2019-03-21] MEDS: DAPSONE 100 MG TABLET PO SCH (08:45)
[2019-03-21] MEDS ORDERED: MORPHINE SULFATE 4 MG/ML, 1ML ONE (10:29)
[2019-03-21] MEDS: morphine SULFATE 10 MG/ML, 1ML IVPush PRN (10:32)
[2019-03-21] MEDS: ATORVASTATIN 80 MG TABLET PO SCH (20:30)
[2019-03-21] MEDS: OXYcodone IR 5MG TABLET PO PRN (20:30)
[2019-03-21] MEDS ORDERED: LORazepam 2 MG/ML, 1ML IVPush PRN (21:00)
[2019-03-22 01:50] VITALS: BP 99/63
[2019-03-22] MEDS: OXYcodone IR 5MG TABLET PO PRN (08:01)
[2019-03-22 08:05] VITALS: BP 100/69
[2019-03-22 12:52] VITALS: BP 98/69
[2019-03-22] MEDS: morphine SULFATE 10 MG/ML, 1ML IVPush PRN (14:36)
[2019-03-22 19:50] VITALS: BP 96/66
[2019-03-23 02:31] VITALS: BP 94/65
[2019-03-23] MEDS: morphine SULFATE 10 MG/ML, 1ML IVPush PRN ×2 (05:20→09:24)
[2019-03-23 06:41] VITALS: BP 97/60
[2019-03-23 19:17] VITALS: BP 94/60
[2019-03-24] MEDS: morphine SULFATE 10 MG/ML, 1ML IVPush PRN ×3 (01:30→21:23)
[2019-03-24 07:46] VITALS: BP 82/62
== END 2019-03-25 00:55 | disposition expired | DRG 974 ==
LOC: ED 19:03 → EDIP 19:43 → 4WST 23:54
PROVIDERS: ADMIT Internal Medicine; ATTEND Internal Medicine
PROC: 30233R1 Transfusion of Nonautologous Platelets into Peripheral Vein, Percutaneous Approach (ICD-10-PCS; principal; 2019-03-20)
DX: B20 Human immunodeficiency virus [HIV] disease (principal); A41.9 Sepsis, unspecified organism; E43 Unspecified severe protein-calorie malnutrition; J15.9 Unspecified bacterial pneumonia; J86.9 Pyothorax without fistula; R65.21 Severe sepsis with septic shock; D68.69 Other thrombophilia; E87.1 Hypo-osmolality and hyponatremia; E87.2 Acidosis; I47.2 Ventricular tachycardia; I50.42 Chronic combined systolic (congestive) and diastolic (congestive) heart failure; L03.119 Cellulitis of unspecified part of limb; N39.0 Urinary tract infection, site not specified; R64 Cachexia; B19.20 Unspecified viral hepatitis C without hepatic coma; B96.89 Other specified bacterial agents as the cause of diseases classified elsewhere; D69.6 Thrombocytopenia, unspecified; E03.9 Hypothyroidism, unspecified; E61.1 Iron deficiency; E86.0 Dehydration; E87.5 Hyperkalemia; F15.10 Other stimulant abuse, uncomplicated; F17.200 Nicotine dependence, unspecified, uncomplicated; Z66 Do not resuscitate; I11.0 Hypertensive heart disease with heart failure; I25.10 Atherosclerotic heart disease of native coronary artery without angina pectoris; I25.5 Ischemic cardiomyopathy; Z68.27 Body mass index [BMI] 27.0-27.9, adult; I51.3 Intracardiac thrombosis, not elsewhere classified; K72.90 Hepatic failure, unspecified without coma; K76.1 Chronic passive congestion of liver; K80.20 Calculus of gallbladder without cholecystitis without obstruction; I25.2 Old myocardial infarction; N19 Unspecified kidney failure; R62.7 Adult failure to thrive; Z51.5 Encounter for palliative care; Z79.01 Long term (current) use of anticoagulants; Z79.82 Long term (current) use of aspirin; Z91.14 Patient's other noncompliance with medication regimen; Z95.5 Presence of coronary angioplasty implant and graft; Z88.2 Allergy status to sulfonamides; Z88.8 Allergy status to other drugs, medicaments and biological substances
CPT/HCPCS: 36415; 36430; 71045; 71250; 80053; 80061; 80162; 81001; 83036; 83605; 83615; 83735; 83880; 84145; 84439; 84443; 84484; 85025; 85610; 86361; 86738; 86850; 86900; 87040; 87086; 93005; 96365; 96367; 96375; 99291; G0378; J0696; J2185; J2405; J2543; J3370; J2270; J7030; J7050; P9035